=== PATIENT | male | born 1945 | race Caucasian/White ===

== ENCOUNTER 2017-03-26 10:58 | Inpatient (IN) ==
--- NOTE | 2017-03-25 22:20 | Discharge Summary ---
<Nova Cruz - Last Filed: 03/26/17 09:14> Date of Encounter: 03/26/17 - Discharge Diagnosis (1) Rotator cuff tear arthropathy of right shoulder Priority: Primary Status: Acute (2) DMII (diabetes mellitus, type 2) Priority: Secondary Status: Chronic Qualifiers: Diabetes mellitus complication status: with unspecified complications Diabetes mellitus skilled nursing insulin use: unspecified terminal computer operator insulin use status Qualified Code(s): E11.8 - Type 2 diabetes mellitus with unspecified complications (3) HTN (hypertension) Priority: Secondary Status: Chronic Qualifiers: Hypertension type: essential hypertension Qualified Code(s): I10 - Essential (primary) hypertension (4) Smoker Priority: Secondary Status: Chronic (5) HLD (hyperlipidemia) Priority: Secondary Status: Chronic Qualifiers: Hyperlipidemia type: unspecified Qualified Code(s): E78.5 - Hyperlipidemia , unspecified - Discharge Medications Home Medications: Atorvastatin [Lipitor] 40 mg PO HS 02/16/17 [History] Lisinopril [Zestril] 5 mg PO DAILY 02/16/17 [History] Omeprazole [PriLOSEC] 40 mg PO DAILY 02/16/17 [History] OxyCODONE Immed Rel [Roxicodone 5 MG] 5 - 10 mg PO Q6HR PRN #40 tablet 03/26/17 [Rx] Allergies/Adverse Reactions: Allergies No Known Allergies Allergy (Verified 03/26/17 13:01) Primary care physician: Sudhakar Cortez DO - Patient Status Disposition: Home, Self-Care Condition: Good - Discharge Instructions Follow Up With: Sudhakar Cortez DO [Primary Care Provider] - - Hospital Course Hospital course: Mr. Shah is a 71 year old male - Time Spent with Patient Total time spent providing and/or coordinating discharge services: <Arturo Correa - Last Filed: 03/27/17 06:26> Date of Encounter: 03/27/17 Time of Encounter: 06:26 - Discharge Diagnosis (1) Rotator cuff tear arthropathy of right shoulder Priority: Primary Status: Acute (2) DMII (diabetes mellitus, type 2) Priority: Secondary Status: Chronic Qualifiers: Diabetes mellitus complication status: with unspecified complications Diabetes mellitus terminal computer operator insulin use: unspecified skilled nursing insulin use status Qualified Code(s): E11.8 - Type 2 diabetes mellitus with unspecified complications (3) HTN (hypertension) Priority: Secondary Status: Chronic Qualifiers: Hypertension type: essential hypertension Qualified Code(s): I10 - Essential (primary) hypertension (4) Smoker Priority: Secondary Status: Chronic (5) HLD (hyperlipidemia) Priority: Secondary Status: Chronic Qualifiers: Hyperlipidemia type: unspecified Qualified Code(s): E78.5 - Hyperlipidemia , unspecified Primary care physician: Sudhakar Cortez DO - Patient Status Functional capacity at discharge: independent ambulation Overall status at discharge: patient is progressing back to baseline - Hospital Course Hospital course: Mr. Shah is a 71 year old male The patient had an uneventful postoperative course. They received antibiotics and physical therapy and were discharged in stable condition. There will follow -up in the office in 2 weeks. - Time Spent with Patient Total time spent providing and/or coordinating discharge services:
[2017-03-26] MEDS ORDERED: Lidocaine -MPF 1% 2 ML VIAL ID ONE (11:53)
[2017-03-26] MEDS ORDERED: Albuterol 2.5 MG/3 ML NEBULIZER IH ONE (11:53)
[2017-03-26] MEDS ORDERED: CeFAZolin Pre 2,000 MG/100 ML 2,000 MG/100 ML BAG IVPB ONE (11:53)
[2017-03-26] MEDS ORDERED: Ringers Solution, Lactated 1,000 ML IVC SCH ×2 (12:00→17:05)
--- NOTE | 2017-03-26 12:11 | Anesthesia Evaluation PreOp ---
Date of Encounter: 03/26/17 Time of Encounter: 12:09 - Past History Planned Operation: r tsr Cardiac History: HTN, Hyperlipidemia Pulmonary History: Smoker, Pack/yr (30), Asthma GREETER History: Denies Any Significant HX Other Medical History: Diabetes Type II, GERD Anesthesia History: No Prior Anesthetic Complications, Past Anesthesia (partial colectomy, umb hernia) Alcohol Use: occasionally Drug use: none Medications and Allergies Atorvastatin [Lipitor] 40 mg PO HS 02/16/17 [History] Lisinopril [Zestril] 5 mg PO DAILY 02/16/17 [History] Omeprazole [PriLOSEC] 40 mg PO DAILY 02/16/17 [History] OxyCODONE Immed Rel [Roxicodone 5 MG] 5 - 10 mg PO Q6HR PRN #40 tablet 03/26/17 [Rx] Allergies No Known Allergies Allergy (Verified 03/16/17 13:41) - Meds/Allergy Pre-op Review Medications Reviewed: Yes Allergies Reviewed: Yes Beta Blockers on Current Med List: No Anesthesia Results - Labs Laboratory Tests 03/16/17 03/16/17 03/16/17 14:02 14:02 14:02 Hgb 15.7 Hct 48.9 Plt Count 165 PT 12.8 H INR 1.2 APTT 34.4 Sodium 141 Potassium 4.4 Creatinine 1.03 - Imaging EKG: report reviewed (sr) Anesthesia Exam O2 Sat Height 1.7 m Height 1.7 m Weight 92.079 kg Weight 92.079 kg O2 Sat by Pulse Oximetry 96 Vital Signs Temp Pulse Resp BP Pulse Ox 97.7 F 74 18 174/83 96 03/26/17 11:56 03/26/17 11:56 03/26/17 11:56 03/26/17 11:56 03/26/17 11:56 Height: 1.7 Weight: 92 NPO (# of Hours): >8 - HEENT Pupil (Motor): Pupils equal, EOMI Mallampati: II Teeth: Edentulous Denture Type: Upper: Complete, Lower: Complete Oral Opening: Greater than 3 - GREETER LOC: Oriented GREETER Motor: Normal RUE, Normal LUE, Normal RLE, Normal LLE, Normal Face GREETER Sensory: Normal: RUE, LUE, RLE, LLE, Face - Cardiac Rhythm: Regular Murmur: None - Pulmonary Breath Sounds: bilateral Clear Respiratory Effort: Symmetrical Anesthesia Assess/Plan ASA Score: 2 Modified [place] Scale for Level of Consciousness: Cooperative, oriented, and tranquil Anesthetic Plan: General, Regional Monitoring Plan: Standard Monitors Recovery Plan: PACU
[2017-03-26] MEDS ORDERED: CloNIDine Patch 0.1 MG PATCH (WEEKLY) TD SCH (12:30)
[2017-03-26] MEDS ORDERED: *HR* Propofol 200 MG/20 ML VIAL IVP ONE (13:49)
[2017-03-26] MEDS ORDERED: *HR* FentaNYL (PF) 100 MCG/2 ML VIAL ONE (13:49)
[2017-03-26] MEDS ORDERED: *HR* Midazolam HCl 2 MG/2 ML VIAL ONE (13:49)
[2017-03-26] MEDS ORDERED: Ondansetron 4 MG/2 ML VIAL IVP PRN ×3 (13:52→17:05)
[2017-03-26] MEDS ORDERED: *HR* HYDROmorphone (PF) 1 MG/ML SYRINGE IVP PRN ×3 (13:52→17:05)
[2017-03-26] MEDS ORDERED: Lidocaine -MPF 2% 2 ML VIAL ONE (14:06)
--- NOTE | 2017-03-26 14:18 | History & Physical Report ---
Date of Encounter: 03/26/17 Time of Encounter: 14:18 24 Hour HP Update - Instructions Instructions: If the History and Physical is less than 30 days old and was completed prior to A.M. admission and or procedure and has NOT been updated on calendar day of procedure please complete this update prior to performing procedure. - Update Patient reports changes in Medical Condition: No Changes in examination, assessment, or condition: No Changes in Medication: No Preop tests/diagnostics Reviewed: Yes Surgery Remains Indicated: Yes Consent for Planned Operative Procedure(s) Verified: Yes - Pre-Operative Checklist Preoperative Checklist Indicated: No Prophylactic Antibiotic Ordered: Yes Is VTE Prophylaxis Indicated?: Yes
[2017-03-26] MEDS ORDERED: ROPIVACAINE HCL/PF 0.5% 30 ML VIAL ONE (14:25)
[2017-03-26] MEDS ORDERED: Bupivacaine-MPF 0.25% 10 ML VIAL ONE (14:25)
--- NOTE | 2017-03-26 14:44 | Anesthesia Procedures ---
Date of Encounter: 03/26/17 Time of Encounter: 14:42 Procedures: Anesthesia - Nerve Block Procedure Date: 03/26/17 Time: 14:42 Allergies/Adv Reactions: nka Surgical Procedure: right TSA Checklist: Correct Patient Identifier, Correct procedure, History checked Correct side: Right Blood Thinner: No Monitor Applied: EKG, BP, Pulse Oximetry Supplemental Oxygen via Nasal Cannula (L/min): 2 Sedation: Versed (mg): 2 Sedation: Fentanyl (mcg): 100 Indication: Post Op Analgesia Pre-op Neuro Deficits: No Block Type: Interscalene, Other (CP) Catheter placed: No Sterile Technique: Yes Ultrasound used: Yes Anatomy identified: Yes Visual spread of Local: Yes Neuro Stimulation: No Blood on Needle Aspiration: No Smooth Injection of Local: Yes Pain with Injection of Local: No Prep: Chlorhexadine Needle: 22 x 50 mm Stimuplex Local: Ropivacaine (0.5% 30mL), Other (decadron 10mg IS, 0.25% 10mL bupivacaine CP) Volume (cc): 40 Number of Attempts: 1 Complications: None/effective block Vitals: Vital Signs/O2 Sat/Glucose, Most Recent Temp Pulse Resp BP Pulse Ox 97.7 F 74 18 174/83 96 03/26/17 12:06 03/26/17 12:06 03/26/17 12:06 03/26/17 12:06 03/26/17 12:06
[2017-03-26] MEDS ORDERED: Ondansetron 4 MG/2 ML VIAL ONE (15:18)
[2017-03-26] MEDS ORDERED: Dexamethasone 4 MG/ML VIAL ONE (15:18)
--- NOTE | 2017-03-26 15:36 | Orthopedic Operative Note ---
Date of procedure: 03/26/17 Pre-op diagnosis: Right shoulder cuff tear arthropathy Post-op diagnosis: same Procedure: Procedure: Right Total Shoulder Replacment Reverse, biceps tenodesis Estimated blood loss: 100 cc Hardware: Metal and polyethylene replacement: Arthrex large glenoid baseplate, 2 4.5 screws. 1 6.5 screw, 42+4 glenosphere, 12 humeral stem, poly insert 3 Exam Under anesthesia: Full motion no instability Procedural Notes: Irreparable tear supraspinatus tendon. Operative procedure: The patient was brought to the operating room and placed on the operating room table. After general anesthesia was administered the operative shoulder was examined. Findings were noted. The patient was placed in the modified beachchair position. All pressure points were padded appropriately. And the head was stabilized in the neutral position. The operative extremity was prepped and draped in the sterile surgical fashion. The patient received IV antibiotics prior to skin incision. A standard deltopectoral approach was made to the operative shoulder. Incision was made to the skin and subcutaneous tissue,hemo stasis was obtained with Bovie cautery. Using careful blunt dissection the cephalic vein was identified and mobilized medially. The deltopectoral interval was developed and the clavipectoral fascia was incised. The subscap was released off the lesser tuberosity and tagged with #2 FiberWire suture subscap last was irreparable. The humerus was dislocated patient noted to have irreparable tear supraspinatus tendon, and the humeral cut was made along the anatomic neck. Anterior and posterior Bankart retractors were placed to expose the glenoid. The glenoid guide was seated and the centering hole was made. It was reamed with the appropriate reamer. The large baseplate was seated and secured with (2) 4.5 screws and one 6.5 screw. The baseplate was irrigated and dried and the 42+4 Glenosphere was seated and secured with the Barnard taper. The Barnard taper was tested and found to be secure the humerus was redislocated and prepared with the diaphyseal reamers, followed by a broaching process up to the appropriate size 12 in the patient's anatomic version. The metaphyseal reamer was then utilized. Trial reduction found the shoulder to be relocatable. Trial components were removed and The appropriate 12 stem was impacted in place in the patient's anatomic version. Trial reduction found the shoulder to be relocatable and stable with the appropriate 3 Trial component was removed and the real component was seated and secured the shoulder was reduced. The shoulder had excellent motion and excellent stability and no evidence of dislocation. The deep tissue was irrigated with pulse irrigation. The deltopectoral interval was closed with a running #1 PDS suture, subcutaneous tissue was irrigated and closed with 0 PDS suture, the skin was closed with Dermabond. The patient was placed in a sterile dressing, abduction brace and extubated. The patient was then transferred to the recovery room in stable condition. Anesthesia: LUCHO Surgeon: Arturo Correa Stretching Press Operator: Nova Cruz Condition: stable Disposition: PACU
--- NOTE | 2017-03-26 16:26 | Anesthesia Evaluation Post Op ---
Date of Encounter: 03/26/17 Time of Encounter: 16:25 - Vital Signs Vital Signs: O2 Sat Height 1.7 m Height 1.7 m Height 1.7 m Weight 92.079 kg Weight 92.079 kg Weight 92.079 kg O2 Sat by Pulse Oximetry 96 O2 Sat by Pulse Oximetry 96 O2 Sat by Pulse Oximetry 95 O2 Sat by Pulse Oximetry 98 O2 Sat by Pulse Oximetry 96 O2 Sat by Pulse Oximetry 96 O2 Sat by Pulse Oximetry 96 Vital Signs Temp Pulse Resp BP Pulse Ox 97.7 F 74 18 174/83 96 03/26/17 11:56 03/26/17 11:56 03/26/17 11:56 03/26/17 11:56 03/26/17 11:56 Vital Signs/O2 Sat/Glucose, Most Current Temp Pulse Resp BP Pulse Ox 03/26/17 16:14 60 16 136/77 96 03/26/17 16:04 62 16 146/85 96 03/26/17 15:54 97.6 F 75 20 121/98 95 03/26/17 14:49 63 16 170/80 98 - Lungs Lungs: Clear Ascult./Percussion - Airway Airway: Non-obstructed - Cardiovascular Regular Rate - Mental Status Mental Status: Alert & Oriented, Answers Appropriately - Pain Pain Scale: 0 - Nausea Vomiting Nausea Vomiting: Not Present - Hydration Hydration: Tolerates oral liquids - Discharge PostOp Status: Discharge Patient to home
[2017-03-26 16:47] LABS: Hematocrit 43.8 % (37.5-50.1); Hemoglobin 14.1 g/dL (12.9-16.9)
[2017-03-26] MEDS ORDERED: Dextrose Gel 15 GM PO PRN ×2 (17:05)
[2017-03-26] MEDS ORDERED: Sennosides 8.6 MG TABLET PO PRN (17:05)
[2017-03-26] MEDS ORDERED: *HR* Dextrose 50 % in Water (Syg) 50 ML SYRINGE IVP PRN (17:05)
[2017-03-26] MEDS ORDERED: MOM Conc 10 ML UD.LIQ PO PRN (17:05)
[2017-03-26] MEDS ORDERED: *HR* OxyCODONE Immed Rel 5 MG TABLET PO PRN ×2 (17:05)
[2017-03-26] MEDS ORDERED: Temazepam 15 MG CAPSULE PO PRN (17:05)
[2017-03-26] MEDS ORDERED: Naloxone 0.4 MG/ML INJ IVP PRN (17:05)
[2017-03-26] MEDS ORDERED: D5% in Water 1,000 ML IVC PRN (17:05)
[2017-03-26] MEDS: ceFAZolin 2,000 MG in D5% in Water 100 ML IVPB SCH (17:53)
[2017-03-26] MEDS: *HR* Enoxaparin 30 MG/0.3 ML SYRINGE SQ SCH (17:55)
[2017-03-26] MEDS: Insulin LISPRO 300 UNITS/3 ML VIAL SQ SCH (17:56)
[2017-03-26] MEDS ORDERED: *HR* Enoxaparin 30 MG/0.3 ML SYRINGE SQ SCH (18:00)
[2017-03-26] MEDS ORDERED: Insulin LISPRO 300 UNITS/3 ML VIAL SQ SCH (21:00)
[2017-03-27] MEDS: ceFAZolin 2,000 MG in D5% in Water 100 ML IVPB SCH (00:17)
[2017-03-27 04:26] LABS: Hematocrit 44.7 % (37.5-50.1)
[2017-03-27] MEDS: *HR* Enoxaparin 30 MG/0.3 ML SYRINGE SQ SCH (05:26)
--- NOTE | 2017-03-27 06:27 | Orthopedics Progress Note ---
Date of Encounter: 03/27/17 Time of Encounter: 06:26 - Assessment and Plan (1) Rotator cuff tear arthropathy of right shoulder Current Visit: Yes Status: Acute (2) DMII (diabetes mellitus, type 2) Current Visit: Yes Status: Chronic Qualifiers: Diabetes mellitus complication status: with unspecified complications Diabetes mellitus intermediate insulin use: unspecified longwall foreman insulin use status Qualified Code(s): E11.8 - Type 2 diabetes mellitus with unspecified complications (3) HTN (hypertension) Current Visit: Yes Status: Chronic Qualifiers: Hypertension type: essential hypertension Qualified Code(s): I10 - Essential (primary) hypertension (4) Smoker Current Visit: Yes Status: Chronic (5) HLD (hyperlipidemia) Current Visit: Yes Status: Chronic Qualifiers: Hyperlipidemia type: unspecified Qualified Code(s): E78.5 - Hyperlipidemia , unspecified Subjective Interval history: Patient was seen this morning doing well without complaints. Afebrile vital signs stable. Operative extremity: Neurovascularly intact Dressing clean dry and intact Calves nontender Assessment and plan: Continue with postoperative care Hematocrit 44 discharged today Objective Vital signs: Vital Signs Temp Pulse Resp BP Pulse Ox 03/27/17 05:04 93 03/27/17 04:34 98.5 F 76 15 133/78 85 03/27/17 00:36 98.7 F 78 14 120/78 99 03/26/17 20:24 94 03/26/17 20:10 98.1 F 89 15 134/95 94 03/26/17 19:10 98.2 F 81 16 03/26/17 18:10 98.3 F 69 16 138/81 93 03/26/17 17:37 98.0 F 65 16 133/79 92 03/26/17 17:17 95 03/26/17 17:10 97.8 F 62 14 127/73 95 03/26/17 16:24 97.6 F 67 16 140/82 96 03/26/17 16:14 60 16 136/77 96 03/26/17 16:04 62 16 146/85 96 03/26/17 15:54 97.6 F 75 20 121/98 95 03/26/17 14:49 63 16 170/80 98 03/26/17 12:06 97.7 F 74 18 174/83 96 03/26/17 11:56 97.7 F 74 18 174/83 96 Intake and Output 03/26/17 03/26/17 03/27/17 15:59 23:59 07:59 Intake Total 200 / 200 1225 / 1225 Output Total 100 / 100 950 / 950 Balance -100 / -100 200 / 200 275 / 275 Intake: IV Fluids 100 / 100 1100 / 1100 Lactated Ringers 1,000 ML 1000 / 1000 @ 75 mls/hr IVC .[id number] YAMEL Rx#:[id number] Ancef 2,000 MG In 100 / 100 100 / 100 Dextrose 5% 100 ML @ 200 mls/hr IVPB Q8H YAMEL Rx#: [id number] Oral 100 / 100 125 / 125 Output: Urine 0 / 0 950 / 950 Estimated Blood Loss 100 / 100 Other: Weight 92.079 kg 76.2 kg Blood Glucose* 165 Patient Weight 03/27/17 23:59 Weight 76.2 kg - Labs CBC & BMP: 03/27/17 03:43 Labs: Abnormal lab results POC Glucose 165 (58-89) H 03/26/17 20:36 - VTE Documentation of Mechanical Device: Venous foot pump, device Consult Discharge Plan - Plan Referrals: Sudhakar Cortez DO [Primary Care Provider] -
[2017-03-27 06:31] VITALS: BP 124/71
[2017-03-27] MEDS: Insulin LISPRO 300 UNITS/3 ML VIAL SQ SCH (07:49)
== END 2017-03-27 10:50 | disposition home or self-care (01) | DRG 483 ==
LOC: SAMDAY 10:58 → 3NENU 16:44
PROVIDERS: ADMIT Orthopaedic Surgery; ATTEND Orthopaedic Surgery

== ENCOUNTER 2018-06-10 11:21 | Inpatient (IN) ==
--- NOTE | 2018-06-09 21:48 | Discharge Summary ---
<Arturo Correa - Last Filed: 06/11/18 08:19> Orders not resulted at time of discharge: Pending orders 06/10/18 00:01 XR shoulder complete LT [XR] Routine 06/10/18 08:07 US anesthesia pain block [US] Routine 06/10/18 11:41 CBC [Complete Blood Count] [HEME] Stat Date of Encounter: 06/11/18 Time of Encounter: 08:19 - Discharge Diagnosis (1) Obesity (BMI 30.0-34.9) Priority: Secondary Status: Chronic (2) Hx of basal cell carcinoma Priority: Secondary Status: Chronic (3) Status post reverse total replacement of right shoulder Priority: Primary Status: Acute (4) DMII (diabetes mellitus, type 2) Priority: Secondary Status: Chronic Qualifiers: Diabetes mellitus termite exterminator insulin use: unspecified assisted insulin use status Diabetes mellitus complication status: with unspecified complications Qualified Code(s): E11.8 - Type 2 diabetes mellitus with unspecified complications (5) HLD (hyperlipidemia) Priority: Secondary Status: Chronic Qualifiers: Hyperlipidemia type: unspecified Qualified Code(s): E78.5 - Hyperlipidemia , unspecified (6) HTN (hypertension) Priority: Secondary Status: Chronic Qualifiers: Hypertension type: essential hypertension Qualified Code(s): I10 - Essential (primary) hypertension (7) Rotator cuff tear arthropathy of right shoulder Priority: Primary Status: Chronic (8) Smoker Priority: Secondary Status: Chronic - Hospital Course Hospital course: Mr. Shah is a 72 year old male Status post left total shoulder replacement The patient had an uneventful postoperative course. They received antibiotics and physical therapy and were discharged in stable condition. There will follow -up in the office in 2 weeks. - Time Spent with Patient Total time spent providing and/or coordinating discharge services: - Discharge Medications Home Medications: OxyCODONE Immed Rel [Roxicodone 5 MG] 5 mg PO Q6HR PRN 7 Days #28 tablet [Rx] Albuterol Sulfate [Proair Hfa] 2 puff IH Q4H PRN 06/10/18 [History] Atorvastatin [Lipitor] 40 mg PO DAILY 06/10/18 [History] Cyanocobalamin (Vitamin B-12) [Vitamin B12] 1,000 mcg PO DAILY 06/10/18 [History ] Lisinopril [Zestril] 5 mg PO BID 06/10/18 [History] Omeprazole [PriLOSEC] 40 mg PO DAILY 06/10/18 [History] Sildenafil Citrate [Viagra] 100 mg PO DAILY PRN 06/10/18 [History] Allergies/Adverse Reactions: 3 Allergy/AdvReac Type Severity Reaction Status Date / Time No Known Allergies Allergy Verified 04/05/17 20:18 Primary care physician: Sudhakar Cortez DO - Patient Status Disposition: Home, Self-Care Condition: Good Functional capacity at discharge: independent ambulation Overall status at discharge: patient is progressing back to baseline - Discharge Instructions Follow Up With: Arturo Correa MD [Partnered Physician] - 07/10/18 4:40 pm Nova Cruz PAC [Physician Commodity Manager] - 06/20/18 10:15 am Sudhakar Cortez DO [Primary Care Provider] - 08/23/18 2:25 pm Additional Instructions: Discharge Instructions: Total Shoulder Please call [facility] ([phone]), your Primary Care Physician, or report to the Emergency Room if you have any of the following symptoms: Nausea, vomiting, fever greater that 101.5, swelling, chest pain, shortness of breath, increased pain/redness/drainage/odor for your incision site, numbness/ tingling, or any other concerning symptoms. ACTIVITY: Always keep your arm in the sling. Do not raise your arm away from your body. Do not use your arm to help with getting in or out of bed. No weight bearing permitted. Only perform those exercises given to you by your therapist. Incentive Spirometer 10 times an hour. MEDICATIONS: Upon discharge resume your home medications. Take all the medications as prescribed. Take a stool softener if taking narcotic pain medications. Stool softeners are only effective if you drink enough fluids. Drink 6-8 glass of water or fluids a day, unless this is not allowed for another health problem. Despite using stool softeners, if you haven't had a bowel movement in 3 days, please switch to a gentle laxative. Gentle laxatives are sold over the counter. You should have a bowel movement within 24 hours, if not call the office. You will be discharged from the hospital with a prescription for pain medication. You are encouraged to decrease the use of narcotic pain medication as tolerated. Should you require a refill, please call the office. [facility] prescribes narcotic pain medication for only 4-6 weeks after surgery. If you require pain medication beyond this time period, you may be referred to your Primary Care Physician or to the Pain Clinic for further evaluation. Plan ahead for refills on pain medication as many narcotics either need to be picked up at the office or mailed. It is best to call 48-72 hours in advance of needing a prescription refill so you don't run out of medication. To help control the post-operative pain, you may take NSAIDs (Aleve,Advil, Motrin, Ibuprofen, Naprosyn) or Tylenol as prescribed on the bottle in addition to the pain medication. WOUND CARE: Leave the dressing on for 7-10 days. You may change the dressing if it becomes saturated greater than 50%. Do not get the dressing wet at anytime. Wash your hands with antibacterial soap, rinse and dry prior to any wound care. If you have mike the visiting nurse or rehab facility can remove the stapes 10-14 days after surgery and place steri-strips across the wound. Leave the steri-strips in place until they fall off on their own. You may let water from the shower run on top of the steri-strips. If you do not have a visiting nurse or rehab facility, you will need to return to the office at 10-14 days for the mike to be removed. If you have itching or redness around the dressing call the office. FOLLOW-UP: Please follow up with your surgeon in the orthopedic clinic, as scheduled <Nova Cruz - Last Filed: 06/13/18 12:58> Date of Encounter: 06/11/18 Time of Encounter: 12:56 - Discharge Diagnosis (1) Status post reverse total replacement of right shoulder Priority: Primary Status: Acute Comments: Opsite dressing, leave intact until first post-operative visit. Zipline in place , plan to remove at post-operative day #14-16. If dressing becomes >50% saturated, contact office, remove dressing and place appropriate dressing in its place.~ Do not allow for dressing to get wet. Shoulder Precautions x 6 weeks.~ Apply cold therapy wrap 3-6x/day for 20 minutes at a time.~ Encourage ambulation throughout the day. Use Incentive spirometer 10x/hour.~ Elevate affected extremity above heart as tolerated.~ NWB to affected upper extremity x 6 weeks.~ Will remove brace at first post-operative appointment. OK to remove during PT/ OT and Home exercises.~ (2) Rotator cuff tear arthropathy of right shoulder Priority: Secondary Status: Chronic (3) Hx of basal cell carcinoma Priority: Secondary Status: Chronic (4) DMII (diabetes mellitus, type 2) Priority: Secondary Status: Chronic Qualifiers: Diabetes mellitus termite exterminator insulin use: unspecified termite exterminator insulin use status Diabetes mellitus complication status: with unspecified complications Qualified Code(s): E11.8 - Type 2 diabetes mellitus with unspecified complications (5) HLD (hyperlipidemia) Priority: Secondary Status: Chronic Qualifiers: Hyperlipidemia type: unspecified Qualified Code(s): E78.5 - Hyperlipidemia , unspecified (6) HTN (hypertension) Status: Chronic Qualifiers: Hypertension type: essential hypertension Qualified Code(s): I10 - Essential (primary) hypertension (7) Smoker Priority: Secondary Status: Chronic - Hospital Course Hospital course: Mr. Shah is a 72 year old male Afebrile, vital signs stable. Labs reviewed. H/H - stable, asymptomatic Pain control: adequate Participating in PT.~ All questions and concerns addressed. Educated on use of incentive spirometer. Encouraged ambulation and proper hydration.~ Patient educated on post-operative restrictions and post-operative care.~ Assessment and plan: Continue with postoperative care Discharge plan: Home, discharge today. - Time Spent with Patient Total time spent providing and/or coordinating discharge services: Primary care physician: Sudhakar Cortez DO - Patient Status Functional capacity at discharge: independent ambulation Overall status at discharge: patient is back to baseline
--- NOTE | 2018-06-10 07:51 | Anesthesia Evaluation PreOp ---
Date of Encounter: 06/10/18 Time of Encounter: 12:24 - Past History Planned Operation: LEFT TSA Cardiac History: HTN, Hyperlipidemia, Other (DVT RIGHT ARM AFTER TSA, WAS ON XARELTO FOR 3 MONTHS) Pulmonary History: Smoker, COPD RISK ENGINEER History: Denies Any Significant HX Other Medical History: Diabetes Type II (DIET CONTROLLED), GERD, Other (OBESITY , BMI) Anesthesia History: No Prior Anesthetic Complications, Past Anesthesia ( COLECTOMY, Umbilical hernia repair, right Total Shoulder Replacment) Alcohol Use: occasionally Drug use: none Medications and Allergies OxyCODONE Immed Rel [Roxicodone 5 MG] 5 mg PO Q6HR PRN 7 Days #28 tablet [Rx] Atorvastatin [Lipitor] 40 mg PO DAILY 06/10/18 [History] Cyanocobalamin (Vitamin B-12) [Vitamin B12] 1,000 mcg PO 06/10/18 [History] Lisinopril [Zestril] 5 mg PO BID 06/10/18 [History] Omeprazole [PriLOSEC] 40 mg PO DAILY 06/10/18 [History] Proair Hfa 1 puff .ROUTE PRN PRN 06/10/18 [History] Sildenafil Citrate [Viagra] 100 mg PO PRN PRN 06/10/18 [History] 3 Allergy/AdvReac Type Severity Reaction Status Date / Time No Known Allergies Allergy Verified 04/05/17 20:18 - Meds/Allergy Pre-op Review Medications Reviewed: Yes Allergies Reviewed: Yes Beta Blockers on Current Med List: No Anesthesia Results - Labs Laboratory Last Values WBC 13.4 K/mcL (4.3-11.1) H 06/06/18 15:16 RBC 4.55 M/mcL (4.19-5.50) 06/06/18 15:16 Hgb 15.3 g/dL (12.9-16.9) 06/06/18 15:16 Hct 43.8 % (37.5-50.1) 06/06/18 15:16 MCV 96.3 fL (83.0-100.0) 06/06/18 15:16 MCH 33.6 pg (28.0-33.3) H 06/06/18 15:16 MCHC 34.9 g/dL (31.6-35.5) 06/06/18 15:16 RDW 14.6 % (11.5-14.5) H 06/06/18 15:16 Plt Count 135 K/mcL (140-400) L 06/06/18 15:16 MPV 13.1 fL (9.4-12.4) H 06/06/18 15:16 Immature Gran % 0.7 % (0-4) 06/06/18 15:16 Seg Neutrophils % 56.5 % 06/06/18 15:16 Lymphocytes % 29.5 % 06/06/18 15:16 Monocytes % 9.5 % 06/06/18 15:16 Eosinophils % 3.1 % 06/06/18 15:16 Basophils % 0.7 % 06/06/18 15:16 Neutrophils # 7.6 K/mcL (1.6-8.9) 06/06/18 15:16 Lymphocytes # 4.0 K/mcL (0.6-4.6) 06/06/18 15:16 Monocytes # 1.3 K/mcL (0.0-1.3) 06/06/18 15:16 Eosinophils # 0.4 K/mcL (0.0-0.6) 06/06/18 15:16 Basophils # 0.1 K/mcL (0.0-0.2) 06/06/18 15:16 Sodium 140 mEq/L (136-145) 06/06/18 15:16 Potassium 4.0 mEq/L (3.5-5.1) 06/06/18 15:16 Chloride 109 mEq/L (98-107) H 06/06/18 15:16 Carbon Dioxide 27 mEq/L (23-29) 06/06/18 15:16 BUN 10 mg/dL (8-23) 06/06/18 15:16 Creatinine 1.07 mg/dL (0.70-1.30) 06/06/18 15:16 Est GFR ( Amer) > 60 (> 60) 06/06/18 15:16 Est GFR (Non-Af Amer) > 60 (> 60) 06/06/18 15:16 BUN/Creatinine Ratio 9 (6-26) 06/06/18 15:16 Glucose 112 mg/dL (70-105) H 06/06/18 15:16 Calculated Osmolality 290 (280-300) 06/06/18 15:16 Calcium 8.9 mg/dL (8.6-10.3) 06/06/18 15:16 Laboratory Tests 05/21/18 09:11 Hemoglobin A1c 6.5 H - Imaging EKG: report reviewed (SINUS RHYTHM WITH OCCASIONAL VENTRICULAR PREMATURE COMPLEXES) Anesthesia Exam O2 Sat Height 1.7 m Height 1.7 m Weight 97.069 kg Weight 97.069 kg BMI 34 Vital Signs Temp Pulse Resp BP Pulse Ox 97.7 F 71 18 179/83 96 06/10/18 11:56 06/10/18 11:56 06/10/18 11:56 06/10/18 11:56 06/10/18 11:56 NPO (# of Hours): 8 - HEENT Mallampati: II Teeth: Edentulous Denture Type: Upper: Complete, Lower: Complete Oral Opening: Greater than 3 - Cardiac Rhythm: Regular - Pulmonary Breath Sounds: bilateral Clear Respiratory Effort: Symmetrical Anesthesia Assess/Plan ASA Score: 3 Modified Margaret Scale for Level of Consciousness: Cooperative, oriented, and tranquil Anesthetic Plan: General, Regional (FOR POST OPERATIVE PAIN CONTROL) Monitoring Plan: Standard Monitors Recovery Plan: PACU Anes Supervising Prov Stmt: ELEVATED WBC, PATIENT DENIES UTI OR URI SYMPTOMS. NO SKIN INFECTIONS, BOILS, ETC. NO RECENT STEROID USE. WBC HAS BEEN ELEVATED ON ALL CBC PANELS PERFORMED SINCE 01/2017 AT THIS FACILITY. PATIENT AND FAMILY ADVISED TO FOLLOW UP WITH PCP. PROBABLY NORMAL FOR PATIENT, BUT NEED TO RULE OUT MYELOPROLIFERATIVE DISORDERS AND LEUKEMIA. Patient informed and consented. Risks, benefits, and alternatives discussed. Patient wishes to proceed.
[2018-06-10] MEDS ORDERED: CeFAZolin Syr 2,000MG/20 ML 2,000 MG/20 ML SYRINGE IVPB ONE (12:01)
[2018-06-10] MEDS ORDERED: Albuterol 2.5 MG/3 ML NEBULIZER IH ONE (12:01)
--- NOTE | 2018-06-10 12:04 | History & Physical Report ---
Date of Encounter: 06/10/18 Time of Encounter: 12:03 24 Hour HP Update - Instructions Instructions: If the History and Physical is less than 30 days old and was completed prior to A.M. admission and or procedure and has NOT been updated on calendar day of procedure please complete this update prior to performing procedure. - Update Patient reports changes in Medical Condition: No Changes in examination, assessment, or condition: No Changes in Medication: No Preop tests/diagnostics Reviewed: Yes Surgery Remains Indicated: Yes Consent for Planned Operative Procedure(s) Verified: Yes - Pre-Operative Checklist Preoperative Checklist Indicated: No Prophylactic Antibiotic Ordered: Yes Is VTE Prophylaxis Indicated?: Yes
[2018-06-10] MEDS ORDERED: Ringers Solution, Lactated 1,000 ML IVC SCH ×2 (12:15→16:14)
[2018-06-10] MEDS ORDERED: *HR* FentaNYL (PF) 100 MCG/2 ML VIAL ONE ×2 (12:30→14:29)
[2018-06-10] MEDS ORDERED: *HR* Midazolam HCl 2 MG/2 ML VIAL ONE (12:30)
[2018-06-10] MEDS ORDERED: *HR* Propofol 200 MG/20 ML VIAL IVP ONE (12:31)
[2018-06-10] MEDS ORDERED: ROPIVACAINE HCL/PF 0.5% 30 ML VIAL ONE (13:17)
[2018-06-10] MEDS ORDERED: Bupivacaine/Clonidine Syringe 1 EACH SYRINGE ONE (13:17)
[2018-06-10] MEDS ORDERED: *HR* Labetalol 20 MG/4 ML SYRINGE IVP PRN (13:21)
[2018-06-10] MEDS ORDERED: *HR* OxyCODONE Immed Rel 5 MG TABLET PO PRN ×2 (13:21→16:14)
[2018-06-10] MEDS ORDERED: *HR* HYDROmorphone (PF) 1 MG/ML SYRINGE IVP PRN (13:21)
[2018-06-10] MEDS ORDERED: *HR* HYDROmorphone 2 MG TABLET PO PRN (13:21)
[2018-06-10] MEDS ORDERED: MORPHINE SUL Oral CONC 10 MG/0.5 ML ORAL.SYG SL PRN (13:21)
[2018-06-10] MEDS ORDERED: *HR* Promethazine 25 MG/ML VIAL IVP PRN (13:21)
[2018-06-10] MEDS ORDERED: *HR* Succinylcholine 200 MG/10 ML VIAL IVP ONE (13:51)
[2018-06-10] MEDS ORDERED: Lidocaine -MPF 2% 2 ML VIAL ONE (13:51)
[2018-06-10] MEDS ORDERED: *HR* Rocuronium Bromide 50 MG/5 ML VIAL ONE (13:51)
[2018-06-10] MEDS ORDERED: Acetaminophen IV 1,000 MG/100 ML INFUS..BTL ONE (13:56)
[2018-06-10] MEDS ORDERED: Dexamethasone 4 MG/ML VIAL ONE (14:02)
[2018-06-10] MEDS ORDERED: Ketorolac 30 MG/ML VIAL ONE (14:02)
[2018-06-10] MEDS ORDERED: Ondansetron 4 MG/2 ML VIAL ONE (14:02)
--- NOTE | 2018-06-10 14:16 | Anesthesia Procedures ---
Date of Encounter: 06/10/18 Time of Encounter: 14:13 Procedures: Anesthesia - Nerve Block Procedure Date: 06/10/18 Time: 13:45 Allergies/Adv Reactions: No Known Allergies Allergy (Verified 04/05/17 20:18) Pre-op Diagnosis: left shoulder rotator cuff arthropathy Surgical Procedure: left total shoulder reverse ball Checklist: Correct Patient Identifier, Correct procedure, History checked Correct side: Left Blood Thinner: No Monitor Applied: EKG, BP, Pulse Oximetry Supplemental Oxygen via Nasal Cannula (L/min): 2 Sedation: Versed (mg): 2 Sedation: Fentanyl (mcg): 100 Pre-op Neuro Deficits: No Block Type: Supraclavicular Catheter placed: No Sterile Technique: Yes Ultrasound used: Yes Anatomy identified: Yes Visual spread of Local: Yes Neuro Stimulation: No Blood on Needle Aspiration: No Smooth Injection of Local: Yes Pain with Injection of Local: No Prep: Chlorhexadine Needle: 22 x 50 mm Stimuplex Local: 0.25% Bupivicaine w/Clonidine 20 mcg/cc (ICB, SCP 5ml each), Ropivacaine (0.5% ropivicaine 30ml-sUPRAclav) Volume (cc): 40 Number of Attempts: 1 Complications: None/effective block
--- NOTE | 2018-06-10 15:00 | Orthopedic Operative Note ---
Date of procedure: 06/10/18 Pre-op diagnosis: Left shoulder cuff tear arthropathy Post-op diagnosis: same Procedure: Procedure: Total Shoulder Replacment Reverse, left Estimated blood loss: 75 cc Hardware: Metal and polyethylene replacement: Arthrex 28+2, 30 mm screw glenoid baseplate, 2 4.5 screws. 2 5.5 screw, 42+4 glenosphere, 13 humeral stem , poly insert Polly6 Exam Under anesthesia: Full motion no instability Procedural Notes: Irreparable tear supraspinatus tendon Operative procedure: The patient was brought to the operating room and placed on the operating room table. After general anesthesia was administered the operative shoulder was examined. Findings were noted. The patient was placed in the modified beachchair position. All pressure points were padded appropriately. And the head was stabilized in the neutral position. The operative extremity was prepped and draped in the sterile surgical fashion. The patient received IV antibiotics prior to skin incision. A standard deltopectoral approach was made to the operative shoulder. Incision was made to the skin and subcutaneous tissue,hemo stasis was obtained with Bovie cautery. Using careful blunt dissection the cephalic vein was identified and mobilized medially. The deltopectoral interval was developed and the clavipectoral fascia was incised. The subscap was released off the lesser tuberosity and tagged with #2 FiberWire suture Was irreparable. The humerus was dislocated patient noted to have irreparable tear supraspinatus tendon, and the humeral cut was made along the anatomic neck. Anterior and posterior Bankart retractors were placed to expose the glenoid. The glenoid guide was seated and the centering hole was made. It was reamed with the appropriate reamer. 20 mm baseplate +2 with a 30 mm screw was seated and secured with (2) 4.5 screws and 2 5.5 screw. The baseplate was irrigated and dried and the 42+4 Glenosphere was seated and secured with the Barnard taper. The Barnard taper was tested and found to be secure the humerus was redislocated and prepared with the diaphyseal reamers, followed by a broaching process up to the appropriate size 13 in the patient's anatomic version. The metaphyseal reamer was then utilized. Trial reduction found the shoulder to be relocatable. Trial components were removed and the 13 stem was impacted in place in the patient's anatomic version. Trial reduction found the shoulder to be relocatable and stable with the appropriate 6 Kell. Trial component was removed and the real implant was seated and secured the shoulder was reduced. The shoulder had excellent motion and excellent stability and no evidence of dislocation. The deep tissue was irrigated with pulse irrigation. The PA close the shoulder. The deltopectoral interval was closed with a running #1 PDS suture, subcutaneous tissue was irrigated and closed with 0 PDS suture, the skin was closed with Dermabond. The patient was placed in a sterile dressing, abduction brace and extubated. The patient was then transferred to the recovery room in stable condition. Anesthesia: GETA Surgeon: Arturo Correa Was there an assistant toddler teacher present: No Estimated blood loss (cc): 75 Condition: stable Disposition: PACU
--- NOTE | 2018-06-10 15:50 | Anesthesia Evaluation Post Op ---
Date of Encounter: 06/10/18 Time of Encounter: 15:50 - Vital Signs Vital Signs: Vital Signs/O2 Sat/Glucose, Most Current Temp Pulse Resp BP Pulse Ox 06/10/18 15:39 62 16 143/84 97 06/10/18 15:29 71 16 140/85 95 06/10/18 15:19 97.4 F L 59 16 165/78 97 06/10/18 13:59 62 15 135/82 94 06/10/18 13:43 63 15 136/76 91 06/10/18 13:39 66 15 140/74 91 06/10/18 13:28 86 16 155/82 92 06/10/18 13:15 70 15 164/95 94 06/10/18 13:08 68 15 167/88 94 06/10/18 12:34 18 179/83 96 06/10/18 11:56 97.7 F 71 18 179/83 96 - Lungs Lungs: Clear Ascult./Percussion - Airway Airway: Non-obstructed - Cardiovascular Regular Rate, Baseline Rhythm - Mental Status Mental Status: Alert & Oriented, Answers Appropriately - Pain Pain Scale: 2 Pain Scale used: Numeric (1 - 10) - Nausea Vomiting Nausea Vomiting: Not Present - Hydration Hydration: Ice chips, Has not voided - Discharge PostOp Status: Transfer Patient to floor Anes Supervising Prov Stmt: PT seen/evaluated, VSS and has met criteria for discharge to home. - MD Judy
[2018-06-10] MEDS ORDERED: *HR* Dextrose 50 % in Water (Syg) 50 ML SYRINGE IVP PRN (16:14)
[2018-06-10] MEDS ORDERED: Dextrose Gel 15 GM/37.5 ML TUBE PO PRN ×2 (16:14)
[2018-06-10] MEDS ORDERED: Temazepam 15 MG CAPSULE PO PRN (16:14)
[2018-06-10] MEDS ORDERED: Sennosides 8.6 MG TABLET PO PRN (16:14)
[2018-06-10] MEDS ORDERED: NON-FORMULARY MEDICATION 1 EACH EACH (Sildenafil Citrate [Viagra] 100 MG) PO PRN (16:14)
[2018-06-10] MEDS ORDERED: Ondansetron 4 MG/2 ML VIAL IVP PRN (16:14)
[2018-06-10] MEDS ORDERED: traMADol 50 MG TABLET PO PRN (16:14)
[2018-06-10] MEDS ORDERED: Naloxone 0.4 MG/ML INJ IVP PRN (16:14)
[2018-06-10] MEDS ORDERED: D5% in Water 1,000 ML IVC PRN (16:14)
[2018-06-10] MEDS ORDERED: *HR* OxyCODONE/APAP 5/325 TABLET PO PRN (16:14)
[2018-06-10] MEDS ORDERED: MOM Conc 10 ML UD.LIQ PO PRN (16:14)
[2018-06-10 16:39] LABS: Basophils # 0.1 K/mcL (0.0-0.2); Basophils % 0.4 %; Eosinophils # 0.2 K/mcL (0.0-0.6); Eosinophils % 1.4 %; Hematocrit 46.8 % (37.5-50.1); Hemoglobin 15.4 g/dL (12.9-16.9); Immature Granulocytes % 1.1 % (0-4); Lymphocytes # 1.7 K/mcL (0.6-4.6); Lymphocytes % 10.6 %; Mean Corpuscular HGB Conc 32.9 g/dL (31.6-35.5); Mean Corpuscular Hemoglobin 31.1 pg (28.0-33.3); Mean Corpuscular Volume 94.5 fL (83.0-100.0); Mean Platelet Volume 12.6 fL (9.4-12.4); Monocytes # 0.5 K/mcL (0.0-1.3); Neutrophils # 13.5 K/mcL (1.6-8.9); Platelet Count 131 K/mcL (140-400); Red Blood Count 4.95 M/mcL (4.19-5.50); Red Cell Distribution Width 13.7 % (11.5-14.5); Segmented Neutrophils % 83.5 %
[2018-06-10] MEDS ORDERED: Ethanol\\Acetic Acid\\Na Ace\\Ben 1,000 ML IRRIG.SOLN IR ONE (16:52)
[2018-06-10] MEDS: Insulin LISPRO 300 UNITS/3 ML VIAL SQ SCH (17:57)
[2018-06-10] MEDS ORDERED: *HR* Enoxaparin 30 MG/0.3 ML SYRINGE SQ SCH (18:00)
[2018-06-10] MEDS: *HR* Enoxaparin 30 MG/0.3 ML SYRINGE SQ SCH (18:03)
[2018-06-10] MEDS ORDERED: Insulin LISPRO 300 UNITS/3 ML VIAL SQ SCH (21:00)
[2018-06-11 02:25] LABS: Hemoglobin 12.9 g/dL (12.9-16.9)
[2018-06-11] MEDS: *HR* Enoxaparin 30 MG/0.3 ML SYRINGE SQ SCH (05:15)
[2018-06-11 06:30] VITALS: BP 138/65
[2018-06-11] MEDS: Insulin LISPRO 300 UNITS/3 ML VIAL SQ SCH (07:52)
--- NOTE | 2018-06-11 08:21 | Orthopedics Progress Note ---
Date of Encounter: 06/11/18 Time of Encounter: 08:20 - Assessment and Plan (1) Obesity (BMI 30.0-34.9) Current Visit: Yes Status: Chronic (2) Hx of basal cell carcinoma Current Visit: No Status: Chronic (3) Status post reverse total replacement of right shoulder Current Visit: No Status: Acute (4) DMII (diabetes mellitus, type 2) Current Visit: No Status: Chronic Qualifiers: Diabetes mellitus intermediate frame tender insulin use: unspecified skilled nursing insulin use status Diabetes mellitus complication status: with unspecified complications Qualified Code(s): E11.8 - Type 2 diabetes mellitus with unspecified complications (5) HLD (hyperlipidemia) Current Visit: No Status: Chronic Qualifiers: Hyperlipidemia type: unspecified Qualified Code(s): E78.5 - Hyperlipidemia , unspecified (6) HTN (hypertension) Current Visit: No Status: Chronic Qualifiers: Hypertension type: essential hypertension Qualified Code(s): I10 - Essential (primary) hypertension (7) Rotator cuff tear arthropathy of right shoulder Current Visit: No Status: Chronic (8) Smoker Current Visit: No Status: Chronic Subjective Interval history: Patient was seen this morning doing well without complaints. Afebrile vital signs stable. Operative extremity: Neurovascularly intact Dressing clean dry and intact Calves nontender Assessment and plan: Continue with postoperative care Hematocrit 40 discharged today Objective Vital signs: Vital Signs Temp Pulse Resp BP Pulse Ox 06/11/18 06:29 98.0 F 65 16 138/65 92 06/11/18 04:08 98.3 F 70 16 126/78 94 06/11/18 00:22 98.3 F 76 16 130/76 92 06/10/18 21:57 98.7 F 80 16 134/79 94 06/10/18 18:05 98.3 F 64 14 145/87 95 06/10/18 17:15 97.5 F L 61 16 140/71 92 06/10/18 16:43 97.5 F L 62 14 159/85 96 06/10/18 16:15 97.8 F 59 14 135/88 95 06/10/18 15:59 97.2 F L 61 16 142/85 97 06/10/18 15:49 97.0 F L 66 16 147/89 97 06/10/18 15:39 62 16 143/84 97 06/10/18 15:29 71 16 140/85 95 06/10/18 15:19 97.4 F L 59 16 165/78 97 06/10/18 13:59 62 15 135/82 94 06/10/18 13:43 63 15 136/76 91 06/10/18 13:39 66 15 140/74 91 06/10/18 13:28 86 16 155/82 92 06/10/18 13:15 70 15 164/95 94 06/10/18 13:08 68 15 167/88 94 06/10/18 12:34 18 179/83 96 06/10/18 11:56 97.7 F 71 18 179/83 96 Intake and Output 06/10/18 06/11/18 06/11/18 23:59 07:59 15:59 Intake Total 150 / 150 150 / 150 Output Total 1050 / 1050 Balance 150 / 150 -900 / -900 Intake: IV Fluids 100 / 100 100 / 100 Ancef 2,000 MG In 0.9 % Sodium 100 / 100 100 / 100 Chloride 100 ML @ 200 mls/hr IVPB Q8H [facility] Rx#:[id number] Oral 50 / 50 50 / 50 Output: Urine 1050 / 1050 Other: # Voids 1 Weight 96.7 kg Blood Glucose* 201 101 Patient Weight 06/11/18 23:59 Weight 96.7 kg - Labs CBC & BMP: 06/11/18 01:50 Labs: Abnormal lab results WBC 16.1 K/mcL (4.3-11.1) H 06/10/18 16:26 Plt Count 131 K/mcL (140-400) L 06/10/18 16:26 MPV 12.6 fL (9.4-12.4) H 06/10/18 16:26 Neutrophils # 13.5 K/mcL (1.6-8.9) H 06/10/18 16:26 POC Glucose 201 mg/dL (70-99) H 06/10/18 22:36 - VTE Documentation of Mechanical Device: Venous foot pump, device Consult Discharge Plan - Plan Referrals: Sudhakar Cortez DO [Primary Care Provider] -
== END 2018-06-11 10:50 | disposition home or self-care (01) | DRG 483 ==
LOC: SAMDAY 11:21 → 3NENU 16:11
PROVIDERS: ADMIT Orthopaedic Surgery; ATTEND Orthopaedic Surgery

== ENCOUNTER 2018-08-13 08:05 | Inpatient (IN) ==
--- NOTE | 2018-08-13 08:17 | Emergency Department Note ---
Addendum entered and electronically signed by Anton Fritz DO 08/13/18 09:36: Upon discharge the patient got up to leave the emergency department and became very lightheaded and dizzy. Patient state that he felt like he was going to pass out. Patient never actually passed out and did not collapse. Patient is leaned up against the wall and then was escorted back to his room and sat down. Patient states that after he sat down he was feeling better. It started on the patient having symptoms with his bradycardia feel that the patient will need to be admitted to the hospital at this time. The patient is in agreement with this. A BMP and hemoglobin and hematocrit of been added. I called and spoke the admitting hospitalist Dr. Jon and she has accepted the patient to their service. Patient be admitted to the hospital this time for further evaluation and management. Original Note: Disposition Clinical Impression: Bradycardia, TIA (transient ischemic attack) Disposition: Home, Self-Care Condition: Good Instructions: Bradycardia (ED), Transient Ischemic Attack (ED) Reasons to Return/Additional Instructions: Please follow up with your primary care provider in 3-5 days. I have provided information to the [facility]. Please return to the emergency department if you have any worsening of your symptoms including numbness, weakness, tingling, chest pain, shortness of breath, changes in mentation or any other symptoms that may be concerning to you. Please take all of your medications as prescribed. Prescriptions: Clopidogrel [Plavix] 75 mg PO DAILY #30 tablet Referrals: Neurology [facility] [Provider Group] Cardiology [place] [Provider Group] Time of Disposition: 09:02 General Adult HPI - General Stated complaint: bradycardia Time Seen by Provider: 08/13/18 08:06 Source: patient, EMS Limitations: no limitations Nursing Notes Reviewed: Yes Vital Signs Reviewed: Yes - History of Present Illness HPI Narrative: Patient is a 72-year-old male that presents the emergency department transfer. Patient states that she woke up this morning and had approximately 1 hour of numbness to the left side of his body. Patient states that he had a symptom like this approximately 1 week ago. Patient states that he was admitted to the hospital had a CT scan, MRI, echo and carotid Dopplers done. Patient states that everything was normal. Patient was seen at an outside hospital today and was transferred here due to concern for possible TIA-like symptoms and eating bradycardic at 49. Patient states that he has been told as of recent that his heart rate has been low. Patient states that he is feeling like he is back to normal and has no symptoms at this time. The states that he did not have any visible facial droop or weakness. She does state that he was stating that he felt numb on the left side and was a little bit wobbly but otherwise was fine. The and the patient states that he is back to his baseline at this time. Pain Scale: 0 - Related Data Home Medications Medication Instructions Recorded Confirmed Albuterol Sulfate [Proair Hfa] 2 puff IH Q4H PRN 06/10/18 08/08/18 Atorvastatin [Lipitor] 40 mg PO DAILY 06/10/18 08/08/18 Cyanocobalamin (Vitamin B-12) 1,000 mcg PO MOWEFR 06/10/18 08/08/18 [Vitamin B12] Lisinopril [Zestril] 5 mg PO BID 06/10/18 08/08/18 Omeprazole [PriLOSEC] 40 mg PO DAILY 06/10/18 08/08/18 Sildenafil Citrate [Viagra] 100 mg PO DAILY PRN 06/10/18 08/08/18 Naproxen Sodium [Aleve] 220 mg PO BID PRN 08/08/18 08/08/18 Previous Rx's Medication Instructions Recorded Aspirin Enteric Coated [Aspirin EC] 81 mg PO DAILY #30 tablet. 08/09/18 Clopidogrel [Plavix] 75 mg PO DAILY #30 tablet 08/13/18 Allergies Allergy/AdvReac Type Severity Reaction Status Date / Time No Known Allergies Allergy Verified 08/08/18 09:52 All systems ED: reviewed and negative except as stated. Cardiovascular: Denies: chest pain Respiratory: Denies: dyspnea Gastrointestinal: Denies: abdominal pain Neurological: Reports: numbness. Denies: headache, weakness, paresthesias Past Medical History - Past Medical History Medical history: Reports: asthma, GERD, hyperlipidemia, hypertension, other Surgical history: Reports: herniorrhaphy Psychiatric history: Reports: no psych history - Social History Smoking Status: Current every day smoker Smokeless Tobacco Status: No Alcohol use: Reports: none Drug use: Reports: none Physical Exam - General Limitations: no limitations General appearance: alert, in no apparent distress - Head Head exam: atraumatic, normocephalic - Eye Eye exam: Present: normal appearance, EOMI - Neck Neck exam: Present: normal inspection, full ROM, trachea midline - Respiratory Respiratory exam: Present: normal lung sounds bilaterally. Absent: respiratory distress, wheezes - Cardiovascular Cardiovascular exam: Present: normal rhythm, bradycardia, normal heart sounds, +S1, +S2 - Abdominal Exam Abdominal exam: Present: soft, Non-Tender, normal bowel sounds - Neurological Exam Neurological exam: Present: alert, oriented X3, CN II-XII intact - Expanded Neurological Exam Speech: Present: fluid speech Cranial nerves: EOM function (II, III, IV, ): Normal, facial sensation (V): Normal, facial palsy (VII): Normal, gag reflex (IX): Normal, spinal accessory function (XI): Normal, tongue deviation (XII): Normal Cerebellar function: finger to nose: Normal, heel to pelayo: Normal Motor strength - LUE: 5/5 Motor strength - RUE: 5/5 Motor strength - LLE: 5/5 Motor strength - RLE: 5/5 Upper motor neuron exam: pronator drift: Absent bilaterally Sensory exam upper extremity: light touch: Normal Sensory exam lower extremity: light touch: Normal Coma Scale Eye Opening: Spontaneous Coma Scale Motor Response: Obeys Commands Coma Scale Verbal Response: Oriented Coma Scale Total: 15 - Psychiatric Psychiatric exam: Present: normal affect, normal mood - Skin Skin exam: Present: warm, dry, intact Course - Consultations Consultation #1: I called and spoke with the on-call neurologist Dr. Perez and we reviewed the patient's medical history and the history of presenting illness of this patient. And he was in agreement that he does not feel that the patient likely needs to be admitted to the hospital at this time due to the patient having complete resolution of his symptoms and having a extensive workup approximately one week ago. Patient was currently just on aspirin and Dr. Perez had recommended the patient be placed on Plavix 75 daily as well as maintaining his aspirin of 81 mg. He also recommended following up as an outpatient with neurology and cardiology. I feel that this is a reasonable plan. Do not feel that the patient needs any further workup in the emergency department at this time due to the patient having complete resolution of symptoms. Time: 08:57 Vital Signs Temperature 97.7 F 08/13/18 08:07 Pulse Rate 54 11/13/18 08:07 Respiratory Rate 18 08/13/18 08:07 Blood Pressure 182/92 08/13/18 08:07 O2 Sat by Pulse Oximetry 96 08/13/18 08:07 Temperature 97.7 F 08/13/18 08:07 Pulse Rate 54 08/13/18 08:07 Respiratory Rate 18 08/13/18 08:07 Blood Pressure 182/119 08/13/18 08:14 O2 Sat by Pulse Oximetry 96 08/13/18 08:07 Oxygen Delivery Oxygen Delivery Room Air Medical Decision Making - MDM Narrative Medical decision making narrative: Due the patient presenting to the emergency department with concern for possible numbness to the left side we will speak to neurology due to the patient having extensive workup for strokelike symptoms approximate one week ago and being essentially negative. The patient did have an EKG which showed a sinus bradycardia however the patient appears to have a chronic history of a low heart rate and bradycardia based on previous EKGs. Patient has had complete resolution of his symptoms is feeling back to his baseline. I spoke with the on-call neurologist. After discussion feel that is appropriate for the patient be discharged home with recognition follow-up with neurology, cardiology or return to the emergency department if he has any worsening of his symptoms. The patient be recommended to continue his 81 mg aspirin daily as well as start Plavix 75 mg daily at the recommendation of the neurologist. Patient be written a prescription for the Plavix and the patient be discharged home at this time. Patient is stable and appropriate for discharge at the time of discharge. - Medical Records Medical records reviewed: Yes I reviewed the patient's medical records. - Lab Data Lab results reviewed: Yes I reviewed the patient's lab results. - Radiology Data Radiology results reviewed: Yes I reviewed the patient's radiology results. - EKG Data EKG #1 EKG attestation: Yes I reviewed and interpreted this EKG. EKG results narrative: Patient's EKG shows a sinus bradycardia at a rate of 49 bpm, IL interval of 177, QRS duration 109, QTC of 402. No evidence of STEMI and EKG. This is compared to previous EKG on 08/08/18 which shows sinus rhythm at 61 bpm.
[2018-08-13] MEDS ORDERED: Naloxone 0.4 MG/ML INJ IVP PRN (09:42)
[2018-08-13 09:46] LABS: Hematocrit 47.9 % (37.5-50.1)
[2018-08-13 09:47] LABS: Hemoglobin 15.7 g/dL (12.9-16.9)
--- NOTE | 2018-08-13 09:57 | Emergency Department Note ---
Disposition Clinical Impression: Bradycardia, TIA (transient ischemic attack) Disposition: Still a Patient Condition: Good Instructions: Transient Ischemic Attack (ED), Bradycardia (ED) Reasons to Return/Additional Instructions: Please follow up with your primary care provider in 3-5 days. I have provided information to the [place]. Please return to the emergency department if you have any worsening of your symptoms including numbness, weakness, tingling, chest pain, shortness of breath, changes in mentation or any other symptoms that may be concerning to you. Please take all of your medications as prescribed. Prescriptions: Clopidogrel [Plavix] 75 mg PO DAILY #30 tablet Referrals: Cardiology [place] [Provider Group] Neurology [facility] [Provider Group] Forms: ED Satisfaction Letter General Adult HPI - General Chief complaint: ED Arrhythmia/Palpitations Stated complaint: bradycardia Time Seen by Provider: 08/13/18 08:06 Source: patient, EMS Limitations: no limitations - History of Present Illness Pain Scale: 0 - Related Data Home Medications Medication Instructions Recorded Confirmed Albuterol Sulfate [Proair Hfa] 2 puff IH Q4H PRN 06/10/18 08/08/18 Atorvastatin [Lipitor] 40 mg PO DAILY 06/10/18 08/08/18 Cyanocobalamin (Vitamin B-12) 1,000 mcg PO MOWEFR 06/10/18 08/08/18 [Vitamin B12] Lisinopril [Zestril] 5 mg PO BID 06/10/18 08/08/18 Omeprazole [PriLOSEC] 40 mg PO DAILY 06/10/18 08/08/18 Sildenafil Citrate [Viagra] 100 mg PO DAILY PRN 06/10/18 08/08/18 Naproxen Sodium [Aleve] 220 mg PO BID PRN 08/08/18 08/08/18 Previous Rx's Medication Instructions Recorded Aspirin Enteric Coated [Aspirin EC] 81 mg PO DAILY #30 tablet. 08/09/18 Clopidogrel [Plavix] 75 mg PO DAILY #30 tablet 08/13/18 Allergies Allergy/AdvReac Type Severity Reaction Status Date / Time No Known Allergies Allergy Verified 08/08/18 09:52 Cardiovascular: Denies: chest pain Respiratory: Denies: dyspnea Gastrointestinal: Denies: abdominal pain Neurological: Reports: numbness. Denies: headache, weakness, paresthesias Past Medical History - Past Medical History Medical history: Reports: asthma, GERD, hyperlipidemia, hypertension, other Surgical history: Reports: herniorrhaphy Psychiatric history: Reports: no psych history - Social History Smoking Status: Current every day smoker Smokeless Tobacco Status: No Alcohol use: Reports: none Drug use: Reports: none Physical Exam - General Limitations: no limitations General appearance: alert, in no apparent distress Course Vital Signs Temperature 97.7 F 08/13/18 08:07 Pulse Rate 54 08/13/18 08:07 Respiratory Rate 18 08/13/18 08:07 Blood Pressure 182/92 08/13/18 08:07 O2 Sat by Pulse Oximetry 96 08/13/18 08:07 Temperature 97.7 F 08/13/18 08:07 Pulse Rate 50 08/13/18 09:43 Respiratory Rate 12 08/13/18 09:43 Blood Pressure 185/85 08/13/18 09:43 O2 Sat by Pulse Oximetry 98 08/13/18 09:43 Oxygen Delivery Oxygen Delivery Room Air Medical Decision Making - Lab Data Result diagrams: 08/13/18 08:16 Lab Results 08/13/18 Range/Units 08:16 Hgb 15.7 D (12.9-16.9) g/dL Hct 47.9 (37.5-50.1) % Attestation Statement - Attestation Attestation: I examined this patient and my medical decision-making was reviewed with the Resident Physician. I agree with the documented findings, disposition and treatment plan as described except to the extent set forth below. Patient presented with symptoms suggestive of a TIA, resolved in less than an hour, a symptomatically on arrival. Had a complete TIA workup on a recent admission. Dr. Fritz spoke with neurology who recommended adding Plavix to his medication regimen and outpatient follow-up with neurology as well as with cardiology. As patient was being prepared for discharge, he had a near syncopal episode, heart rate down to low 40s area he is not on any AV usha blockers. Suspicion is that he would likely require a pacemaker for sick sinus syndrome. Patient is being admitted to the hospital.
[2018-08-13 10:45] LABS: BUN/Creatinine Ratio 11 (6-26); Blood Urea Nitrogen 10 mg/dL (8-23); Carbon Dioxide 26 mEq/L (23-29); Chloride 106 mEq/L (98-107); Glucose 137 mg/dL (70-105); Osmolality,Calculated 295 (280-300); Potassium 4.2 mEq/L (3.5-5.1); Sodium 142 mEq/L (136-145); eGFR For Non-African Americans > 60 (> 60)
[2018-08-13] MEDS ORDERED: Dextrose Gel 15 GM/37.5 ML TUBE PO PRN ×2 (11:48)
[2018-08-13] MEDS ORDERED: *HR* Dextrose 50 % in Water (Syg) 50 ML SYRINGE IVP PRN (11:48)
[2018-08-13] MEDS ORDERED: D5% in Water 1,000 ML IVC PRN (11:48)
--- NOTE | 2018-08-13 11:56 | Internal Med History&Physical ---
Date of Encounter: 08/13/18 Time of Encounter: 11:51 Internal Medicine - H&P: HPI Chief complaint: Feeling lighteheaded Admitted From: Home Plans for Post Hospital Care: Home History of present illness: Mr. Shah is a 72 year old male with known past medical history of hypertension, hyperlipidemia, COPD on chronic tobacco dependence patient who was recently in this facility from 08/08 to 08/09 for a TIA work up, discharged with no significant findings He represented to the ER with complains of left sided numbness, which started an hr before presentation and resolved prior to presentation to the ER. He denied dizziness/CP/palpitations/SOB/n/v/diarrhea/ or GI symptoms. According to his , the patient has also been having heavy night sweats, which are not related with weight loss, or cough, no unintentional weight loss, no recent travels or sick contacts Prior stroke work up one week ago, including CT scan, MRI, echo and carotid Doppler done were within normal limits. He has no neurologic complains of def icits Dr. Root was consulted in the ER and the recommendation was to discharge the patient home, with addition of Plavix to his current regimen. However, when patient got up to leave the ER, he experienced dizziness and light headedness and discharge was cancelled due to co-existing bradycardia. EKG from ER had shown sinus bradycardia of 49. His HR from previous visits ranged from 57 to 77. He is not on a BB He will be placed on observation for bradycardia with dizziness, blood pressure was also elevated and uncontrolled on presentation and he is currently asymptomatic at time of review. He is full code Past Med Surg Social Fam HX - Past Medical History Medical history: asthma, GERD, hyperlipidemia, hypertension, other Additional medical history: diverticulitis, decreased urine stream Psychiatric history: no psych history - Past Surgical History Surgical History: herniorrhaphy Additional surgical history: bilateral shoulder replacement - Social History Smoking Status: Current every day smoker Smokeless Tobacco Status: No Alcohol use: none Drug use: none - Family History Mother Hx Family Cardiac Disorders: Yes Father Hx Family Cardiac Disorders: Yes (tia) Internal Medicine - H&P: Meds Albuterol Sulfate [Proair Hfa] 2 puff IH Q4H PRN 06/10/18 [History] Atorvastatin [Lipitor] 40 mg PO DAILY 06/10/18 [History] Cyanocobalamin (Vitamin B-12) [Vitamin B12] 1,000 mcg PO MOWEFR 06/10/18 [History] Lisinopril [Zestril] 5 mg PO BID 06/10/18 [History] Omeprazole [PriLOSEC] 40 mg PO DAILY 06/10/18 [History] Sildenafil Citrate [Viagra] 100 mg PO DAILY PRN 06/10/18 [History] Naproxen Sodium [Aleve] 220 mg PO BID PRN 08/08/18 [History] Aspirin Enteric Coated [Aspirin EC] 81 mg PO DAILY #30 tablet. 08/09/18 [Rx] Clopidogrel [Plavix] 75 mg PO DAILY #30 tablet 08/13/18 [Rx] Allergy/AdvReac Type Severity Reaction Status Date / Time No Known Allergies Allergy Verified 08/08/18 09:52 All Systems PM: A 10-system review of systems was performed and is negative for pertinent findings except as documented above in the HPI. - Constitutional Constitutional: as per HPI - EENT Eyes: as per HPI Ears: as per HPI Nose, mouth and throat: as per HPI - Cardiovascular Cardiovascular ROS IM: as per HPI - Respiratory Respiratory: as per HPI - Gastrointestinal Gastrointestinal: as per HPI - Musculoskeletal Musculoskeletal ROS IM: as per HPI - Integumentary Integumentary IM: as per HPI - Neurological Neurological ROS: as per HPI - Hematologic/Lymphatic Hematologic/Lymphatic: as per HPI - Constitutional Vitals: Temp Pulse Resp BP Pulse Ox 97.7 F 57 14 169/88 98 08/13/18 08:07 08/13/18 10:25 08/13/18 10:25 08/13/18 10:25 08/13/18 10:25 Exam: Vital signs noted and stable Gen: NAD, Speaks coherently HEENT: Moist oral mucosa, anicteric, not pale Neuro: AAOX3, no facial paralysis, CN grossly intact, no speech deficits, no motor or sensory deficits, gait is not tested due to complains of dizziness Chest: Equal movement, no scars, no chest wall tenderness Resp: CTAB Heart: S1, S2 only, RRR (at time of eval) no m/g/r Abdomen: Soft, not tender, moves with respiration, BS present in al quadrants, no palpably enlarged organs Extremities: Normal inspection of joints, no pedal edema, pulses present and equal bilaterally : Deferred Skin: No rash Psych: Appropriate affect Internal Med - H&P Results - Labs CBC & Chem 7: 08/13/18 08:16 08/13/18 08:16 Labs: Short CBC 08/13/18 Range/Units 08:16 Hgb 15.7 D (12.9-16.9) g/dL Hct 47.9 (37.5-50.1) % BMP 08/13/18 08:16 Sodium 142 Potassium 4.2 Chloride 106 Carbon Dioxide 26 BUN 10 Creatinine 0.94 Glucose 137 H Calcium 9.0 - Assessment and plan (1) Bradycardia Current Visit: Yes Status: Acute Assessment and plan: Patient with HR at baseline usually 60s VR on EKG was 49, however HR has been 55-60 since arrival It is unlikely that the bradycardia is the cause of his dizziness in the setting of preserved and uncontrolled blood pressure Not on any BB, continue to monitor on telemetry ECHO from 08/09 showed LVEF 55-60%, normal LV size and function, mild LVDD, mild-moderate Pulm HTN with no significant valvular dysfunction Will check TSH (2) Tobacco dependence Current Visit: Yes Status: Chronic Assessment and plan: encouraged cessation NRT prn (3) DMII (diabetes mellitus, type 2) Current Visit: Yes Status: Chronic Assessment and plan: SSI, FS ACHS, ADA diet A1C was 6.5% in 05/2018 Qualifiers: Diabetes mellitus group home insulin use: unspecified salvage determiner insulin use status Diabetes mellitus complication status: with unspecified complications Qualified Code(s): E11.8 - Type 2 diabetes mellitus with unspecified complications (4) HLD (hyperlipidemia) Current Visit: Yes Status: Chronic Assessment and plan: continue home meds Qualifiers: Hyperlipidemia type: unspecified Qualified Code(s): E78.5 - Hyperlipidemia, unspecified (5) HTN (hypertension) Current Visit: Yes Status: Chronic Assessment and plan: Uncontrolled On Lisinopril 5mg BID Symptomatic , with dizziness and recurrent TIA-like symptoms Add Norvasc to current regimen, titrate up as needed, continue to monitor Qualifiers: Hypertension type: essential hypertension Qualified Code(s): I10 - Essential (primary) hypertension (6) Obesity (BMI 30.0-34.9) Current Visit: Yes Status: Chronic Assessment and plan: Lifestyle modification (7) Dizziness Current Visit: Yes Status: Acute Assessment and plan: Head CT unremarkable. Check orthostats Fall precautions Control blood pressure and continue to monitor - Time Spent With Patient Total time spent is greater than 50% in coordination of care (as documented) at patient's floor/unit and/or counseling patient:
[2018-08-13] MEDS: Insulin LISPRO 300 UNITS/3 ML VIAL SQ SCH ×3 (13:36→22:27)
[2018-08-14] MEDS: Insulin LISPRO 300 UNITS/3 ML VIAL SQ SCH ×4 (08:33→20:35)
[2018-08-14] MEDS: Aspirin Enteric Coated 81 MG Tablet PO SCH (08:33)
[2018-08-14] MEDS ORDERED: Cyanocobalamin (B-12) 1,000 MCG TABLET PO SCH (09:43)
--- NOTE | 2018-08-14 10:51 | Internal Med Progress Note ---
Hospitalist Progress Note - Encounter Date of Encounter: 08/14/18 Time of Encounter: 10:49 - Subjective Interval History: Mr. Shah is a 72 year old male with known past medical history of hypertension, hyperlipidemia, COPD on chronic tobacco dependence patient who was recently in this facility from 08/08 to 08/09 for a TIA work up, discharged with no sign ificant findings. 3 presented to the ED with left-sided numbness and tingling which resolved upon arrival. Upon discharge the ED patient began to experience dizziness, weakness fatigue and bradycardia. Symptomatically bradycardia. Patient denies any current dizziness or fatigue at this time. He is sinus rhythm with pulse of 78. - Exam Vitals: Temp Pulse Resp BP Pulse Ox 97.9 F 78 16 176/81 95 08/14/18 08:04 08/14/18 09:59 08/14/18 08:04 08/14/18 09:59 08/14/18 08:04 Exam: Vital signs noted and stable Gen: NAD, Speaks coherently HEENT: Moist oral mucosa, anicteric, not pale Neuro: AAOX3, no facial paralysis, CN grossly intact, no speech deficits, no motor or sensory deficits, gait is not tested due to complains of dizziness Chest: Equal movement, no chest wall tenderness Resp: CTA bilaterally AP and L Heart: S1, S2, RRR no m/g/r Abdomen: Soft, not tender, moves with respiration, BS present in al quadrants, no palpably enlarged organs Extremities: Normal inspection of joints, no pedal edema, pulses present and equal bilaterally : Without abdominal tenderness, NABS Skin: No rash or lesions Psych: Appropriate affect - Assessment and Plan (1) Bradycardia Current Visit: Yes Status: Acute Assessment and Plan: Patient with HR at baseline usually 60s HR on EKG was 49; consider symptomatically bradycardia however, is likely not the direct cause of his dizziness in the setting of uncontrolled hypertension However this morning patient's heart rate is 78 Not on any BB, continue to monitor on telemetry ECHO from 08/09 showed LVEF 55-60%, normal LV size and function, mild LVDD, mild- moderate Pulm HTN with no significant valvular dysfunction Consult cardiology to discuss the need for further intervention versus monitoring outpatient with Holter TSH checked and WNL 1.553 (2) DMII (diabetes mellitus, type 2) Current Visit: Yes Status: Chronic Assessment and Plan: Blood glucose remained stable on current regimen Continue SSI, FS ACHS, ADA diet A1C was 6.5% in 05/2018 (3) HTN (hypertension) Current Visit: Yes Status: Chronic Assessment and Plan: Remains Uncontrolled On Lisinopril 5mg BID Symptomatic , with dizziness and recurrent TIA-like symptoms Norvasc added yesterday to current regimen, Monitor this afternoon and titrate up as needed (4) HLD (hyperlipidemia) Current Visit: Yes Status: Chronic Assessment and Plan: continue Lipitor (5) Obesity (BMI 30.0-34.9) Current Visit: Yes Status: Chronic Assessment and Plan: Discussed Lifestyle modification (6) Tobacco dependence Current Visit: Yes Status: Chronic Assessment and Plan: Strongly encouraged cessation (7) Dizziness Current Visit: Yes Status: Acute Assessment and Plan: Head CT unremarkable. Negative for orthostasis Fall precautions Control blood pressure and continue to monitor Has had recent neurological workup for prior admission for TIA Prior workup unremarkable including normal MRI of brain and CT of head - Time Spent with Patient Total time spent is greater than 50% in coordination of care (as documented) at patient's floor/unit and/or counseling patient: less than 15 minutes Plan of Care Discussed with: patient Internal Medicine: Result - Labs CBC & Chem 7: 08/13/18 08:16 08/13/18 08:16 - Impressions Impressions Head CT 08/13/18 12:14 IMPRESSION: Stable CT brain with no acute intracranial abnormality and redemonstration of chronic ischemic findings as described. D/ / Cassandra Diaz MD / Cassandra Diaz MD Interpreting Provider: Cassandra Diaz MD Consult Discharge Plan - Plan Referrals: Merry Bray CNP [Partnered Physician] - 08/16/18 1:00 pm (2) DMII (diabetes mellitus, type 2) Qualifiers: Diabetes mellitus exterminator helper termite insulin use: unspecified exterminator helper termite insulin use status Diabetes mellitus complication status: with unspecified complications Q ualified Code(s): E11.8 - Type 2 diabetes mellitus with unspecified complications (3) HTN (hypertension) Qualifiers: Hypertension type: essential hypertension Qualified Code(s): I10 - Essential (primary) hypertension (4) HLD (hyperlipidemia) Qualifiers: Hyperlipidemia type: unspecified Qualified Code(s): E78.5 - Hyperlipidemia, unspecified
--- NOTE | 2018-08-14 12:53 | Electrocardiograph Report ---
[place] [facility] [facility] Test Date: 2018-08-13 Pat Name: Josep Shah Department: EXAM2 Room: 3B38 Gender: M Funeral Director And Embalmer: : 1945 Requested By: Ranyd Lagunas Order Number: [id number] Reading MD: Liu Isaacs Measurements Intervals [place] Rate: 49 P: 55 NE: 177 QRS: -33 QRSD: 109 T: 48 QT: 445 QTc: 402 Interpretive Statements Sinus bradycardia Left axis deviation Borderline low voltage, extremity leads Electronically Signed On 08-14-2018 12:52:06 EST by Liu Isaacs
[2018-08-14] MEDS ORDERED: Naloxone 0.4 MG/ML INJ IVP PRN (14:37)
--- NOTE | 2018-08-14 15:10 | Cardiology Consult Note ---
<Lidya Lee - Last Filed: 08/14/18 15:06> Date of Encounter: 08/14/18 Time of Encounter: 14:00 Assessment and Plan (1) Left arm pain Current Visit: Yes Status: Acute Per cardiology: -Presented with exertional left arm numbess, burning. Radiating into left neck, face. Reports associated diaphoresis. -Denies chest pain. -Signicicant risk factors for CAD: HTN, DM, HLD, tobacco abuse, family history. -Recent TTE last admission with LVEF preserved, no segmental wall motion abnromalities noted. -ECG with no acute ischemic changes. -Denies previous ischemic evaluation. -Will proceed with excercise nuclear stress test in am to determine if ischemia could be contributing to symptoms. (2) Bradycardia Current Visit: Yes Status: Acute Per cardiology: -Had bradycardic event in ER. -Reported dizziness. -NO recurrence of bradycardia on tele. -K, TSH within normal limits. -Continue telemetry. -Continue to avoid AV usha blockers. -Will continue to monitor. Discussion w patient/family: The assessment and plan as outlined above was discussed with the patient and/or family members who expressed understanding and agreement. All questions were answered. Thank you for involving us in the care of your patient. Please call with any questions. Discussed and reviewed wit . History of Present Illness Consult date: 08/14/18 Requesting physician: Mark Campuzano Consult reason: bradycardia Chief complaint: left arm numbness History of present illness: Mr. Shah is a 72 year old male with a relevant past medical history of HTN, DM, HLD, GERD, tobacco abuse who presented to [facility] with complaints of left arm, neck, and face numbness. Patient reports recent event and was worked up for TIA. Patient states symptoms started yesterday while up walking around garage. Patient then decided to come to ER. Patient reports he was getting ready walk out of ER after discharge, when he had recurrence of symptoms. Patient states he was also dizzy and diaphoretic in ER. Patient denies chest pain or shortness of breath. However, does report some left arm burning. Past Med Surg Social Fam HX - Past Medical History Attestation: Yes The following information was validated with the patient. Source: patient, old records reviewed, obtained from family Medical history: asthma, diabetes, GERD, hyperlipidemia, hypertension, other Additional medical history: diverticulitis, decreased urine stream Psychiatric history: no psych history - Past Surgical History Surgical History: herniorrhaphy Additional surgical history: bilateral shoulder replacement - Social History Smoking Status: Current every day smoker Smokeless Tobacco Status: No Alcohol use: none Drug use: none - Family History Mother Hx Family Cardiac Disorders: Yes Father Hx Family Cardiac Disorders: Yes (tia) Medications and Allergies Albuterol Sulfate [Proair Hfa] 2 puff IH Q4H PRN 06/10/18 [History] Atorvastatin [Lipitor] 40 mg PO DAILY 06/10/18 [History] Cyanocobalamin (Vitamin B-12) [Vitamin B12] 1,000 mcg PO MOWEFR 06/10/18 [History] Lisinopril [Zestril] 5 mg PO BID 06/10/18 [History] Omeprazole [PriLOSEC] 40 mg PO DAILY 06/10/18 [History] Sildenafil Citrate [Viagra] 100 mg PO DAILY PRN 06/10/18 [History] Naproxen Sodium [Aleve] 220 mg PO BID PRN 08/08/18 [History] Aspirin Enteric Coated [Aspirin EC] 81 mg PO DAILY #30 tablet. 08/09/18 [Rx] Clopidogrel [Plavix] 75 mg PO DAILY #30 tablet 08/13/18 [Rx] Allergy/AdvReac Type Severity Reaction Status Date / Time No Known Allergies Allergy Verified 08/08/18 09:52 All Systems Review: The remainder of the systems were reviewed and are negative - Cardiovascular Cardiovascular: as per HPI, diaphoresis, radiating jaw, neck or arm pain, lightheadedness Physical Examination Vital Signs, Last 4 Hours Temp Pulse Resp BP Pulse Ox 08/14/18 14:45 97.8 F 68 20 142/82 94 General: Conversant, No Apparent Distress HEENT: Atraumatic, Normocephaly, Mucus Membranes Moist Neck: No JVD, Normal carotid pulses Cardiac: Reg Rate and Rhythm, Normal S1 and S2, No Murmur Lungs: Normal Breath Sounds, No Wheeze, Rales, Rhonchi Neuro: Alert and responsive, No focal deficits noted Abdomen: Soft, Non-Tender Skin: No rashes noted on visualized skin Musculoskeletal: No Chest Wall Tenderness Extremities: No Clubbing, No Cyanosis, No Edema, Normal Pulses Results 08/13/18 08:16 08/13/18 08:16 Active Medications Aspirin (Aspirin Ec) 81 mg PO DAILY [facility] Stop: 02/13/19 09:01 Last Admin: 08/14/18 08:33 Dose: 81 mg Atorvastatin Calcium (Lipitor) 40 mg PO HS [facility] Stop: 02/13/19 21:01 Clopidogrel Bisulfate (Plavix) 75 mg PO DAILY [facility] Stop: 02/13/19 09:01 Last Admin: 08/14/18 08:33 Dose: 75 mg Cyanocobalamin (Vitamin B12) 1,000 mcg PO MOWEFR [facility] Stop: 02/13/19 09:44 Last Admin: 08/14/18 08:52 Dose: 1,000 mcg Dextrose/Water (Dextrose 50% (Syg)) 25 ml IVP AD PRN PRN Reason: Hypoglycemia Stop: 02/12/19 11:49 Enoxaparin Sodium (Lovenox) 40 mg SQ 0600 [facility]; Protocol Stop: 02/14/19 06:01 Glucagon (Glucagen) 1 mg IM ONCE PRN PRN Reason: Hypoglycemia Stop: 02/12/19 11:49 Glucose (Gluctose) 15 gm PO ONCE PRN PRN Reason: Hypoglycemia Stop: 02/12/19 11:49 Glucose (Gluctose) 30 gm PO ONCE PRN PRN Reason: Hypoglycemia Stop: 02/12/19 11:49 Dextrose (Dextrose 5%) 1,000 mls @ 100 mls/hr IVC .Q10H PRN PRN Reason: HYPOGLYCEMIA Stop: 02/12/19 11:49 Insulin Human Lispro (Humalog) 0 units SQ HS [facility]; Protocol Stop: 02/12/19 21:01 Last Admin: 08/13/18 22:27 Dose: Not Given Insulin Human Lispro (Humalog) 0 units SQ TIDAC [facility]; Protocol Stop: 02/13/19 07:31 Last Admin: 08/14/18 08:33 Dose: Not Given Lisinopril (Zestril) 5 mg PO BID [facility]; Protocol Stop: 02/12/19 21:01 Last Admin: 08/14/18 08:33 Dose: 5 mg Naloxone HCl (Narcan) 0.4 mg IVP Q2MIN PRN PRN Reason: SEE COMMENTS Stop: 02/12/19 09:43 Omeprazole (Prilosec) 40 mg PO DAILY [facility] Stop: 02/13/19 09:01 Last Admin: 08/14/18 08:32 Dose: 40 mg Laboratory Tests 08/13/18 08/13/18 08/13/18 08:16 08:16 12:11 Hgb 15.7 D Potassium 4.2 TSH 1.553 - Imaging and Cardiology Chest Xray: report reviewed Stress Test: pending Echo: report reviewed - EKG Interpretation EKG results cardiology: personally reviewed (ECG with SB, HR 48.), other (Telemetry reviewed with average HR previous 12 hours noted to be 66, SR. PVCs and PACs noted.) Consult Discharge Plan - Plan Referrals: Merry Bray CNP [Partnered Physician] - 08/16/18 1:00 pm <Liu Isaacs - Last Filed: 08/14/18 15:27> Date of Encounter: 08/14/18 - Attending Attestation I have personally performed a face to face evaluation on this patient. I have reviewed and agree with the documented findings and care plan as documented by the CABIN CREW. History and Exam by me shows: 72-year-old male with atypical chest pain and dizziness noted to have sinus bradycardia on telemetry. Recent echo shows normal EF with mild to moderate pulmonary hypertension. In light of risk factors for coronary artery disease, I agree with stress test to rule out ischemia. Thanks, Liu sIaacs MD Assessment and Plan Discussion w patient/family: The assessment and plan as outlined above was discussed with the patient and/or family members who expressed understanding and agreement. All questions were answered. Thank you for involving us in the care of your patient. Please call with any questions. History of Present Illness History of present illness: Mr. Shah is a 72 year old male All Systems Review: The remainder of the systems were reviewed and are negative Physical Examination Vital Signs, Last 4 Hours Temp Pulse Resp BP Pulse Ox 08/14/18 14:45 97.8 F 68 20 142/82 94 Results 08/13/18 08:16 08/13/18 08:16
[2018-08-15] MEDS ORDERED: Regadenoson 0.4 MG/5 ML SYRINGE IVP ONE (05:41)
[2018-08-15] MEDS ORDERED: *HR* Enoxaparin 40 MG/0.4 ML SYRINGE SQ SCH (06:00)
[2018-08-15] MEDS: Aspirin Enteric Coated 81 MG Tablet PO SCH (09:58)
[2018-08-15] MEDS: Insulin LISPRO 300 UNITS/3 ML VIAL SQ SCH ×2 (09:59→12:38)
--- NOTE | 2018-08-15 12:48 | Cardiology Progress Note ---
Date of Encounter: 08/15/18 Time of Encounter: 12:30 Assessment and Plan (1) Left arm pain Current Visit: Yes Status: Acute Per cardiology: -Presented with exertional left arm numbess, burning. Radiating into left neck, face. Reports associated diaphoresis. Denies recurrence of symptoms. -Denies chest pain. -Signicicant risk factors for CAD: HTN, DM, HLD, tobacco abuse, family history. -Recent TTE last admission with LVEF preserved, no segmental wall motion abnromalities noted. -ECG with no acute ischemic changes. -Denies previous ischemic evaluation. -Stress test resulted, negative for ischemia or infarct. -Cardiology will sign off and will follow in outpatient setting, Follow up set. (2) Bradycardia Current Visit: Yes Status: Acute Per cardiology: -Had bradycardic event in ER. -Reported dizziness. -NO recurrence of bradycardia on tele. Average HR 64. -K, TSH within normal limits. -Continue to avoid AV usha blockers. Discussion w patient/family: The assessment and plan as outlined above was discussed with the patient and/or family members who expressed understanding and agreement. All questions were answered. Thank you for involving us in the care of your patient. Please call with any questions. Discussed and reviewed wit . Subjective Principal diagnosis: dizziness Interval history: Patient denies recurrence of dizziness. Denies chest pain. Denies shortness of breath. Objective Vital Signs, Last 4 Hours Temp Pulse Resp BP Pulse Ox 08/15/18 12:30 185/92 08/15/18 09:51 97.9 F 60 14 169/92 94 General: Conversant, No Apparent Distress HEENT: Atraumatic, Normocephaly, Mucus Membranes Moist Neck: No JVD, Normal carotid pulses Cardiac: Reg Rate and Rhythm, Normal S1 and S2, No Murmur Lungs: Normal Breath Sounds, No Wheeze, Rales, Rhonchi Neuro: Alert and responsive, No focal deficits noted Abdomen: Soft, Non-Tender Skin: No rashes noted on visualized skin Musculoskeletal: No Chest Wall Tenderness Extremities: No Clubbing, No Cyanosis, No Edema, Normal Pulses Results 08/13/18 08:16 08/13/18 08:16 Lab Results Active Medications Aspirin (Aspirin Ec) 81 mg PO DAILY YAMEL Stop: 02/13/19 09:01 Last Admin: 08/15/18 09:58 Dose: 81 mg Atorvastatin Calcium (Lipitor) 40 mg PO HS YAMEL Stop: 02/13/19 21:01 Last Admin: 08/14/18 20:38 Dose: 40 mg Clopidogrel Bisulfate (Plavix) 75 mg PO DAILY [facility] Stop: 02/13/19 09:01 Last Admin: 08/15/18 09:58 Dose: 75 mg Cyanocobalamin (Vitamin B12) 1,000 mcg PO MOWEFR [facility] Stop: 02/13/19 09:44 Last Admin: 08/14/18 08:52 Dose: 1,000 mcg Dextrose/Water (Dextrose 50% (Syg)) 25 ml IVP AD PRN PRN Reason: Hypoglycemia Stop: 02/12/19 11:49 Enoxaparin Sodium (Lovenox) 40 mg SQ 0600 [facility]; Protocol Stop: 02/14/19 06:01 Last Admin: 08/15/18 05:31 Dose: 40 mg Glucagon (Glucagen) 1 mg IM ONCE PRN PRN Reason: Hypoglycemia Stop: 02/12/19 11:49 Glucose (Gluctose) 15 gm PO ONCE PRN PRN Reason: Hypoglycemia Stop: 02/12/19 11:49 Glucose (Gluctose) 30 gm PO ONCE PRN PRN Reason: Hypoglycemia Stop: 02/12/19 11:49 Hydralazine HCl (Hydralazine) 10 mg IVP ONCE ONE Stop: 08/15/18 12:41 Dextrose (Dextrose 5%) 1,000 mls @ 100 mls/hr IVC .Q10H PRN PRN Reason: HYPOGLYCEMIA Stop: 02/12/19 11:49 Insulin Human Lispro (Humalog) 0 units SQ HS [facility]; Protocol Stop: 02/12/19 21:01 Last Admin: 08/14/18 20:35 Dose: Not Given Insulin Human Lispro (Humalog) 0 units SQ TIDAC [facility]; Protocol Stop: 02/13/19 07:31 Last Admin: 08/15/18 12:38 Dose: Not Given Lisinopril (Zestril) 5 mg PO BID [facility]; Protocol Stop: 02/12/19 21:01 Last Admin: 08/15/18 09:58 Dose: 5 mg Naloxone HCl (Narcan) 0.4 mg IVP Q2MIN PRN PRN Reason: SEE COMMENTS Stop: 02/12/19 09:43 Omeprazole (Prilosec) 40 mg PO DAILY YAMEL Stop: 02/13/19 09:01 Last Admin: 08/15/18 09:58 Dose: 40 mg Laboratory Tests 08/14/18 15:28 Troponin I < 0.03 - Imaging and Cardiology Chest Xray: report reviewed Stress Test: report reviewed Echo: report reviewed - EKG Interpretation EKG results cardiology: other (Telemetry reviewed with average HR previous 12 hours noted to be 64, SR. PVCs, PACs noted.) Consult Discharge Plan - Plan Referrals: Merry Bray, JENS [Partnered Physician] - 08/16/18 1:00 pm
[2018-08-15 13:57] VITALS: BP 131/86
--- NOTE | 2018-08-15 14:59 | Discharge Summary ---
- NOTES TO OUTPATIENT PROVIDER Notes to Outpatient Provider: Basic d/c f/u, No pending studies Orders not resulted at time of discharge: Pending orders 08/14/18 15:05 NM bushra perf SPECT multi [NM] Routine Date of Encounter: 08/15/18 Time of Encounter: 14:56 - Discharge Diagnosis (1) Bradycardia Priority: Primary Status: Resolved (2) DMII (diabetes mellitus, type 2) Priority: Secondary Status: Chronic Qualifiers: Diabetes mellitus terminal superintendent insulin use: unspecified terminal superintendent insulin use status Diabetes mellitus complication status: with unspecified complications Qualified Code(s): E11.8 - Type 2 diabetes mellitus with unspecified complications (3) HTN (hypertension) Priority: Secondary Status: Chronic Qualifiers: Hypertension type: essential hypertension Qualified Code(s): I10 - Essential (primary) hypertension (4) HLD (hyperlipidemia) Priority: Secondary Status: Chronic Qualifiers: Hyperlipidemia type: unspecified Qualified Code(s): E78.5 - Hyperlipidemia, unspecified (5) Obesity (BMI 30.0-34.9) Priority: Secondary Status: Chronic (6) Tobacco dependence Priority: Secondary Status: Chronic (7) Dizziness Priority: Secondary Status: Acute Hospital course: Mr. Shah is a 72 year old male admitted with dizziness thought to be caused by accelerated hypertension however, there is also concern for symptomatic bradycardia with heart rate in the high 40s. Bradycardia has resolved. The patient is not on any offending medications which would have prompted bradycardia. Etiology of bradycardia remains unclear. Dizziness was briefly limited and resolved on its own. He underwent stress test for further evaluation was found to be negative for ischemia. Per recommendations of cardiology, discharge. Follow-up with PCP in one week. Outpatient follow-up with cardiology. Consider Holter monitor outpatient showed bradycardia returned. Discharge discussed with: patient, nurse, sales and service consultant - Time Spent with Patient Total time spent providing and/or coordinating discharge services: Less than 30 minutes - Discharge Medications Home Medications: Albuterol Sulfate [Proair Hfa] 2 puff IH Q4H PRN 06/10/18 [History] Atorvastatin [Lipitor] 40 mg PO DAILY 06/10/18 [History] Cyanocobalamin (Vitamin B-12) [Vitamin B12] 1,000 mcg PO MOWEFR 06/10/18 [History] Lisinopril [Zestril] 5 mg PO BID 06/10/18 [History] Omeprazole [PriLOSEC] 40 mg PO DAILY 06/10/18 [History] Sildenafil Citrate [Viagra] 100 mg PO DAILY PRN 06/10/18 [History] Naproxen Sodium [Aleve] 220 mg PO BID PRN 08/08/18 [History] Aspirin Enteric Coated [Aspirin EC] 81 mg PO DAILY #30 tablet. 08/09/18 [Rx] Clopidogrel [Plavix] 75 mg PO DAILY #30 tablet 08/13/18 [Rx] Allergies/Adverse Reactions: Allergy/AdvReac Type Severity Reaction Status Date / Time No Known Allergies Allergy Verified 08/08/18 09:52 Date of admission: 08/14/18 14:37 Primary care physician: Sudhakar Cortez DO Consults: 08/14/18 10:44 Consult to Cardiology [CONS] Routine Comment: Consulting Provider: Cardiology Renate Reason for Consult: symptomatic bradycardia Time Notified: 10:44 Call Completed: Yes Discharging clinician: Mark Campuzano Anticipated date of discharge: 08/15/18 - Constitutional Vitals: Temp Pulse Resp BP Pulse Ox 97.9 F 60 14 131/86 94 08/15/18 09:51 08/15/18 09:51 08/15/18 09:51 08/15/18 13:57 08/15/18 09:51 Exam: Vital signs noted and stable Gen: NAD, Speaks coherently HEENT: Moist oral mucosa, anicteric, not pale Neuro: AAOX3, no facial paralysis, CN grossly intact, no speech deficits, no motor or sensory deficits, gait is not tested due to complains of dizziness Chest: Equal movement, no chest wall tenderness Resp: CTA bilaterally AP and L Heart: S1, S2, RRR, no murmurs rubs or gallops Abdomen: Soft, not tender, moves with respiration, BS present in al quadrants, no palpably enlarged organs Extremities: Normal inspection of joints, no pedal edema, pulses present and equal bilaterally : Without abdominal tenderness, NABS Skin: No rash or lesions Psych: Appropriate affect - Patient Status Disposition: Home, Self-Care Condition: Good Functional capacity at discharge: independent ambulation Overall status at discharge: patient is back to baseline - Discharge Instructions Follow Up With: Merry Bray BLOCK MAKING MACHINE OPERATOR [Partnered Physician] - 08/16/18 1:00 pm
== END 2018-08-15 15:55 | disposition home or self-care (01) | DRG 309 ==
LOC: EMEROOARM 08:05 → 3BNU 08:05 → EMEROOARM 09:19 → 3BNU 12:57
PROVIDERS: ADMIT Internal Medicine; ATTEND Internal Medicine

== ENCOUNTER 2018-08-29 10:17 | Observation (INO) ==
--- NOTE | 2018-08-29 11:06 | Emergency Department Note ---
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 It initially was pl anned on being placed tomorrow however because of his symptoms occurred this morning they spoke with cardiology who decided to place a Holter today. Paramedics did come but because the patient's symptoms had resolved patient was not transported here. He denies any numbness of the leg. No weakness of the extremities. No slurred speech, facial droop or confusion. Has been evaluated for similar symptoms twice already this month with MRI scan and CT scan, carotid Doppler, echocardiogram. states he has not seen neurology and the patient denies any chest pain, shortness of breath. Social history: Smoker, no alcohol or drugs Pain Scale: 0 - Related Data Home Medications Medication Instructions Recorded Confirmed Albuterol Sulfate [Proair Hfa] 2 puff IH Q4H PRN 06/10/18 08/29/18 Atorvastatin [Lipitor] 40 mg PO DAILY 06/10/18 08/29/18 Cyanocobalamin (Vitamin B-12) 1,000 mcg PO MOWEFR 06/10/18 08/29/18 [Vitamin B12] Omeprazole [PriLOSEC] 40 mg PO DAILY 06/10/18 08/29/18 Sildenafil Citrate [Viagra] 100 mg PO DAILY PRN 06/10/18 08/29/18 Naproxen Sodium [Aleve] 220 mg PO BID PRN 08/08/18 08/29/18 Previous Rx's Medication Instructions Recorded Aspirin Enteric Coated [Aspirin EC] 81 mg PO DAILY #30 tablet. 08/09/18 Lisinopril [Zestril] 10 mg PO DAILY 30 Days #30 tablet 08/15/18 Allergies Allergy/AdvReac Type Severity Reaction Status Date / Time No Known Allergies Allergy Verified 08/08/18 09:52 Review of Systems: Constitutional: No fever Vision: No blurred vision ENT: No rhinorrhea Respiratory: No cough Allergic: No allergies : No blood in urine GI: No blood in stool Hematologic: No bruising Dermatologic: No skin rash Musculoskeletal: No pain in the extremities Neuro: + numbness of the extremities Past Medical History - Past Medical History Medical history: Reports: asthma, diabetes, GERD, hyperlipidemia, hypertension, other Surgical history: Reports: herniorrhaphy Psychiatric history: Reports: no psych history - Social History Smoking Status: Current every day smoker Smokeless Tobacco Status: No Alcohol use: Reports: none Drug use: Reports: none Physical Exam CONSTITUTIONAL: Well-appearing; well-nourished; A&O X3, in no apparent distress HEAD: Normocephalic; atraumatic. EYES: PERRL, EOMI, no scleral icterus NOSE: The nose is normal in appearance without rhinorrhea NECK: Supple without rigidity, no RAPHAEL RESP: Normal chest excursion with respiration; breath sounds clear and equal bilaterally; no wheezes, rhonchi, or rales CARD: Regular rhythm, without murmurs, rub or gallop ABD: Non-distended; non-tender, soft, without rigidity, rebound or guarding SKIN: Normal for age and race; warm and dry; no apparent lesions, no rash NEUROLOGICAL: Patient is alert and oriented times three. Cranial nerves III- XII are intact. Sensory and motor functions are intact. Strength is 5/5 for flexion and extension in all 4 extremities. Finger to nose testing is equal and normal bilaterally. stroke scale is 0 - General Limitations: no limitations General appearance: alert Course Vital Signs Temperature 97.7 F 08/29/18 10:22 Pulse Rate 54 08/29/18 10:22 Respiratory Rate 14 08/29/18 10:22 Blood Pressure 172/77 08/29/18 10:22 O2 Sat by Pulse Oximetry 100 08/29/18 10:22 Temperature 97.7 F 08/29/18 10:22 Pulse Rate 54 08/29/18 10:22 Respiratory Rate 14 08/29/18 10:22 Blood Pressure 172/77 08/29/18 10:22 O2 Sat by Pulse Oximetry 100 08/29/18 10:22 Oxygen Delivery Oxygen Delivery Room Air Medical Decision Making - MDM Narrative Medical decision making narrative: Patient's symptoms are concerning for TIA. Patient is not significantly bradycardic. 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 I did speak with the hospitalist accepts the patient for admission. The patient is asymptomatic at this time. He is not a thrombolytic candidate due to her stroke score of 0 and no symptoms at this time. I did review the patient's labs. He will be admitted for observation. 1204 I did go back and reassessed the patient and the heart rate is currently 59 bpm. He is not symptomatic. says his heart rate did decrease to 45 bpm and one point in the ED but he was not symptomatic during this time. I did discuss further with the hospitalist who asked that I place a consult in the computer for both neurology and cardiology which I will do 1230 - Medical Records Medical records reviewed: Yes I reviewed the patient's medical records. - Lab Data Lab results reviewed: Yes I reviewed the patient's lab results. Result diagrams: 08/29/18 11:03 08/29/18 11:03 Lab Results 08/29/18 08/29/18 Range/Units 11:03 11:03 WBC 15.3 H (4.3-11.1) K/mcL RBC 5.20 (4.19-5.50) M/mcL Hgb 15.5 (12.9-16.9) g/dL Hct 47.5 (37.5-50.1) % MCV 91.3 (83.0-100.0) fL MCH 29.8 (28.0-33.3) pg MCHC 32.6 (31.6-35.5) g/dL RDW 14.1 (11.5-14.5) % Plt Count 185 (140-400) K/mcL MPV 13.4 H (9.4-12.4) fL Sodium 139 (136-145) mEq/L Potassium 3.9 (3.5-5.1) mEq/L Chloride 109 H (98-107) mEq/L Carbon Dioxide 24 (23-29) mEq/L BUN 14 (8-23) mg/dL Creatinine 0.92 (0.70-1.30) mg/dL Est GFR ( Amer) > 60 (> 60) Est GFR (Non-Af Amer) > 60 (> 60) BUN/Creatinine Ratio 15 (6-26) Glucose 120 H (70-105) mg/dL Calculated Osmolality 290 (280-300) Calcium 9.2 (8.6-10.3) mg/dL Troponin I < 0.03 (< 0.04) ng/mL - Radiology Data Radiology results reviewed: Yes I reviewed the patient's radiology results. NIH Stroke Scale - Level of Consciousness LOC: Alert - LOC Questions LOC Questions: Answers both correctly - LOC Commands LOC Commands: Performs both correctly - Best Gaze Best Gaze: Normal - Visual Visual: No visual loss - Facial Palsy Facial Palsy: Normal - Motor Arms Motor Arm-Left: No drift for 10 seconds Motor Arm-Right: No drift for 10 seconds - Motor Legs Motor Leg-Left: No drift for 5 seconds Motor Leg-Right: No drift for 5 seconds - Limb Ataxia Limb Ataxia: Normal, No Ataxia - Sensory Sensory: Normal - Best Language Best Language: No aphasia - Dysarthria Dysarthria: Normal - Extinction and Inattention Extinction and Inattention: Normal - NIHSS Total Score NIHSS Total Score: 0
[2018-08-29 11:13] LABS: Hematocrit 47.5 % (37.5-50.1); Hemoglobin 15.5 g/dL (12.9-16.9); Mean Corpuscular HGB Conc 32.6 g/dL (31.6-35.5); Mean Corpuscular Hemoglobin 29.8 pg (28.0-33.3); Mean Corpuscular Volume 91.3 fL (83.0-100.0); Mean Platelet Volume 13.4 fL (9.4-12.4); Platelet Count 185 K/mcL (140-400); Red Cell Distribution Width 14.1 % (11.5-14.5)
[2018-08-29 11:31] LABS: BUN/Creatinine Ratio 15 (6-26); Blood Urea Nitrogen 14 mg/dL (8-23); Calcium 9.2 mg/dL (8.6-10.3); Carbon Dioxide 24 mEq/L (23-29); Chloride 109 mEq/L (98-107); Glucose 120 mg/dL (70-105); Osmolality,Calculated 290 (280-300); Potassium 3.9 mEq/L (3.5-5.1); Sodium 139 mEq/L (136-145); Troponin I < 0.03 ng/mL (< 0.04); eGFR For Non-African Americans > 60 (> 60)
--- NOTE | 2018-08-29 13:19 | Neurology - Consult Note ---
<Daniel Ulloa - Last Filed: 08/29/18 15:29> Date of Encounter: 08/29/18 Time of Encounter: 13:18 Assessment and Plan (1) Stroke-like symptoms Current Visit: Yes Status: Acute Patient woke up feeling diaphoretic this morning with associated numbness of the left face/ scalp, left arm, and left leg weakness. Symptoms lasted about one hour than resolved spontaneously. CT brain revealed no acute intracranial abnormality with prominent perivascular spaces in the white matter of the left cerebral hemisphere, and stable prominent perivascular space versus small old lacunar infarct in the right middle cerebellar peduncle. MRI brain on 08/09/18 revealed no acute infarction with sequela of mild chronic microvascular ischemic changes and prominent perivascular spaces in the left frontal and left parietal lobe. Carotid doppler on 08/09/18 revealed non-stenotic plaques bilaterally. Echo revealed LVEF 55-60%, mild LV diastolic dysfunction, and mild-moderate pulmonary hypertension. Resume home Aspirin and statin CTA head and neck ordered (2) Bradycardia Current Visit: Yes Status: Chronic Symptomatic bradycardia Continue Holter monitoring Cardiology consulted (3) HTN (hypertension) Current Visit: No Status: Chronic Resume home meds Qualifiers: Hypertension type: essential hypertension Qualified Code(s): I10 - Essential (primary) hypertension (4) HLD (hyperlipidemia) Current Visit: No Status: Chronic Lipid panel on 10/21/17 revealed triglyceride level 176, total cholesterol 146, LDL 87, HDL 24 Resume home statin Qualifiers: Hyperlipidemia type: unspecified Qualified Code(s): E78.5 - Hyperlipidemia, unspecified (5) DMII (diabetes mellitus, type 2) Current Visit: No Status: Chronic Qualifiers: Diabetes mellitus half-way insulin use: unspecified half-way insulin use status Diabetes mellitus complication status: with unspecified complications Qualified Code(s): E11.8 - Type 2 diabetes mellitus with unspecified complications (6) TIA (transient ischemic attack) Current Visit: No Status: Resolved Patient has history of TIA in the past. No residual deficits. Continue current therapy. (7) Tobacco dependence Current Visit: Yes Status: Chronic Tobacco cessation discussed (8) Status post reverse total replacement of right shoulder Current Visit: No Status: Chronic Recent left reverse total shoulder on 06/10/18 Outpatient monitoring History of Present Illness Chief complaint: Syncope HPI: Mr. Shah is a 72 year old male with a PMH of bradycardia, TIA, HTN, HLD, DM, DVT, vitamin V12 deficiency, and tobacco dependence who presented to the ED after a medical assist was called overhead after he came to warp picker his Holter monitor today. Patient woke up feeling diaphoretic this morning with associated dizziness, vomiting x2, numbness of his left face/ scalp, left arm, and weakness in his left leg. Patient denied numbness of the leg, other extremity weakness, slurred speech, facial droop, confusion, or chest pain. Symptoms lasted about one hour than resolved spontaneously by the time EMS arrived to his house. He called his mold breaker and was instructed to come in today to receive his Holter monitor one day earlier than previously scheduled due to his current sy mptoms. Symptoms reoccurred one he arrived to the hospital today. Of note, patient was hospitalized for symptomatic bradycardia twice this month with recent brain MRI and CT scans, carotid Doppler, echocardiogram, and nuclear stress test. Neurology was consulted for further recommendations. Past Med Surg Social Fam HX - Past Medical History Medical history: asthma, diabetes, GERD, hyperlipidemia, hypertension, other Additional medical history: diverticulitis, decreased urine stream Psychiatric history: no psych history - Past Surgical History Surgical History: herniorrhaphy Additional surgical history: partial CHOLECTOMY for diverticulitis 1983. SKIN BIOPSY 2002. Dental Extractions. Umbilical hernia repair 04/30/12. Right Total Shoulder Replacment Reverse, biceps tenodesis 03/26/17. left reverse total shoulder 06/10/18 - Social History Smoking Status: Current every day smoker Smokeless Tobacco Status: No Alcohol use: none Drug use: none - Family History Mother Hx Family Cardiac Disorders: Yes Father Hx Family Cardiac Disorders: Yes (tia) Medications and Allergies Albuterol Sulfate [Proair Hfa] 2 puff IH Q4H PRN 06/10/18 [History] Atorvastatin [Lipitor] 40 mg PO DAILY 06/10/18 [History] Cyanocobalamin (Vitamin B-12) [Vitamin B12] 1,000 mcg PO MOWEFR 06/10/18 [History] Omeprazole [PriLOSEC] 40 mg PO DAILY 06/10/18 [History] Sildenafil Citrate [Viagra] 100 mg PO DAILY PRN 06/10/18 [History] Naproxen Sodium [Aleve] 220 mg PO BID PRN 08/08/18 [History] Aspirin Enteric Coated [Aspirin EC] 81 mg PO DAILY #30 tablet. 08/09/18 [Rx] Lisinopril [Zestril] 10 mg PO DAILY 30 Days #30 tablet 08/15/18 [Rx] Allergy/AdvReac Type Severity Reaction Status Date / Time No Known Allergies Allergy Verified 08/08/18 09:52 All Systems: The remainder of the systems were reviewed and are negative - Constitutional Constitutional ROS IM: weakness, no chills, no fatigue, no fever(s), no headache(s), no lethargy - Nose, Mouth, Throat Nose, mouth and throat: dizziness - Cardiovascular Cardiovascular ROS IM: no chest pain, no palpitations - Respiratory Respiratory IM: no cough, no dyspnea - Gastrointestinal Gastrointestinal: nausea, vomiting, no abdominal pain - Genitourinary Genitourinary ROS: no urinary frequency, no urinary urgency - Musculoskeletal Musculoskeletal ROS IM: abnormal gait, numbness, tingling, no back pain, no muscle weakness, no neck pain - Integumentary Integumentary IM: no new lesions, no rash - Neurological Neurological ROS: abnormal gait, dizziness, focal weakness, numbness, paresthesias, tingling, weakness, no confusion, no loss of vision, no memory loss, no syncope, no other visual disturbances - Psychiatric Psychiatric general PM: no anxiety, no confusion Physical Examination - Vital Signs Vital Signs: Initial Vital Signs Temp Pulse Resp BP Pulse Ox 97.7 F 54 14 172/77 100 08/29/18 10:22 08/29/18 10:22 08/29/18 10:22 08/29/18 10:22 08/29/18 10:22 - Constitutional General appearance: comfortable - Neurologic Sensorimotor examination: intact Detailed motor examination: grossly full strength in all extremities, full strength in all major muscle groups Motor examination - right side: 5/5: deltoids, biceps, triceps, basket turner, hip flexors, tibialis Anterior, quadriceps, toe extension (EHL), plantarflexion Motor examination - left side: 5/5: deltoids, biceps, triceps, hip flexors, basket turner, quadriceps, tibialis Anterior, toe extension (EHL), plantarflexion Detailed sensory examination: intact, light touch Reflex and gait examination: normal gait Reflexes: Biceps: 2+, Triceps: 2+, Brachioradialis: 2+, Patella: 2+, Achilles: 2+ Mental Status Examination: awake, alert, oriented to person, oriented to place, oriented to time, follows commands appropriately, answers questions appropriately, no agnosia, no aphasia, no aproxia Cranial nerve examination: PERRL, EOMI, visual alfonso intact, sensory to face intact, mastication intact, no facial asymmetry is present, no dysarthria, flexes SCM and trapezius muscles symmetrically with full power, tongue protrudes midline, no atrophy or facial fasiculations present Cerebellar examination: no dysmetria, performs finger to nose and heel to pelayo symmetrically without ataxia, no gait ataxia, no difficulty with rapid altern ating movements Results - Laboratory Findings CBC and BMP: 08/29/18 11:03 08/29/18 11:03 Abnormal lab findings: Abnormal lab results WBC 15.3 K/mcL (4.3-11.1) H 08/29/18 11:03 MPV 13.4 fL (9.4-12.4) H 08/29/18 11:03 Chloride 109 mEq/L (98-107) H 08/29/18 11:03 Glucose 120 mg/dL (70-105) H 08/29/18 11:03 - Diagnostic Findings Additional findings: ITS Impressions Head CT 08/29/18 10:51 IMPRESSION: No acute intracranial abnormality. Prominent perivascular spaces in the white matter of the left cerebral hemisphere, stable and does not require follow-up. Stable prominent perivascular space versus small old lacunar infarct in the right middle cerebellar peduncle. Minimal parenchymal volume loss. Minimal chronic microvascular disease. D/ / Max Parrish MD / Max Parrish MD Interpreting Provider: Max Parrish MD Consult Discharge Plan - Plan Referrals: Sudhakar Cortez DO [Primary Care Provider] - <Randy Calle - Last Filed: 08/29/18 18:17> Date of Encounter: 08/29/18 Time of Encounter: 18:11 Assessment and Plan (1) Bradycardia Current Visit: Yes Status: Chronic I agree that we are more than likely dealing with symptomatic bradycardia or perhaps secondary to primary bradycardia versus a vasovagal event. During the event she did experience diaphoresis, weakness dizziness as well as nausea. He felt lightheaded however he did not lose consciousness. He is been known to have a heart rate into the low 40s. He gives explicit details of this phenomenon which has occurred 3 times. I therefore do not feel we are dealing with seizure, and the MRI does not reveal evidence of an acute cerebral infarct. I agree with cardiac monitoring and cardiac consultation. I will reevaluate him at your request. History of Present Illness HPI: The chart was reviewed, the patient was seen and examined along with the resident. I agree with the resident's assessment as stated above. I would also like to add that I did personally review the MRI scan of his brain completed about 2 weeks ago as well as the CTA scans of the brain and neck completed today. All Systems: The remainder of the systems were reviewed and are negative Review of Systems: The balance of the systems review is negative. Physical Examination - Vital Signs Vital Signs: Initial Vital Signs Temp Pulse Resp BP Pulse Ox 97.7 F 54 14 172/77 100 08/29/18 10:22 08/29/18 10:22 08/29/18 10:22 08/29/18 10:22 08/29/18 10:22 - Neurologic Detailed motor examination: full strength in all major muscle groups Motor examination - right side: 5/5: deltoids, biceps, triceps, wrist flexion, wrist extension, basket turner, hip flexors, tibialis Anterior, quadriceps, toe extension (EHL), plantarflexion Motor examination - left side: 5/5: deltoids, biceps, triceps, wrist flexion, wrist extension, hip flexors, basket turner, quadriceps, tibialis Anterior, toe extension (EHL), plantarflexion Mental Status Examination: awake, alert, oriented to person, oriented to place, oriented to time, follows commands appropriately, answers questions appropriately, no agnosia, no aphasia, no aproxia Cranial nerve examination: PERRL, EOMI, visual alfonso intact, corneal reflexes brisk symmetrically, sensory to face intact, mastication intact, no facial asymmetry is present, no dysarthria, hearing is intact symmetrically, soft palate elevates bilaterally upon phonation, gag reflex intact, flexes SCM and trapezius muscles symmetrically with full power, tongue protrudes midline, no atrophy or facial fasiculations present Cerebellar examination: no dysmetria, performs finger to nose and heel to pelayo symmetrically without ataxia, no gait ataxia, no truncal ataxia, no difficulty with rapid alternating movements Results - Laboratory Findings CBC and BMP: 08/29/18 11:03 08/29/18 11:03 Abnormal lab findings: Abnormal lab results WBC 15.3 K/mcL (4.3-11.1) H 08/29/18 11:03 MPV 13.4 fL (9.4-12.4) H 08/29/18 11:03 Chloride 109 mEq/L (98-107) H 08/29/18 11:03 Glucose 120 mg/dL (70-105) H 08/29/18 11:03
[2018-08-29] MEDS ORDERED: Isovue-370 500 ML INFUS..BTL IV ONE (15:24)
[2018-08-29] MEDS ORDERED: NON-FORMULARY MEDICATION 1 EACH EACH (Sildenafil Citrate [Viagra] 100 MG) PO PRN (15:46)
[2018-08-29] MEDS ORDERED: Naloxone 0.4 MG/ML INJ IVP PRN (15:48)
--- NOTE | 2018-08-29 15:56 | Internal Med History&Physical ---
Date of Encounter: 08/29/18 Time of Encounter: 15:53 Internal Medicine - H&P: HPI Chief complaint: Left face, scalp, arm and leg paresthesias Admitted From: Home Plans for Post Hospital Care: Home History of present illness: Mr. Shah is a 72 year old male with a PMH of asthma, diabetes, GERD, hyperlipidemia and hypertension who presents to [facility] ED with concerns for left facial, left scalp, left arm, left leg paresthesias and diaphoresis which lasted approximately one hour in total. He reports that this occurred at approximately 9 AM this morning. He has had recent admissions and workup for the same. Prior workup included CT head, and MRI of brain which was without acute process, additionally, bilateral carotid Dopplers were without flow-limiting stenosis, TSH and B12 all found to be unremarkable. His reports that she called emergency services but that the patient's symptoms resolved while EMS was in the home so he declined transfer to the ED at that time. The patient was scheduled today to have a Holter monitor placed for evaluation of symptomatic hanh arrhythmias. While at the cardiology office his left sided paresthesias returned. He was sent from cardiology office to the ED for further evaluation. While in the ED he had a CT of the head which was found to be negative for acute intracranial abnormality. He was found to have an elevated WBC of unclear etiology. A urinalysis was obtained. The patient denies fevers, chills, flulike s/sx, ill contacts, urinary symptoms, slurred speech, vision changes, headache, facial droop, confusion, ataxia, gait changes, and disequilibrium. He reports that his symptoms have again subsided. However given his recurrence of symptoms he is being admitted for further evaluation. We will consult neurology and obtain CT of head and neck. Cardiology will also be consulted to assist with management. He will be admitted to observation status. Past Med Surg Social Fam HX - Past Medical History Medical history: asthma, diabetes, GERD, hyperlipidemia, hypertension, other Additional medical history: diverticulitis, decreased urine stream Psychiatric history: no psych history - Past Surgical History Surgical History: herniorrhaphy Additional surgical history: partial CHOLECTOMY for diverticulitis 1983. SKIN BIOPSY 2002. Dental Extractions. Umbilical hernia repair 04/30/12. Right Total Shoulder Replacment Reverse, biceps tenodesis 03/26/17. left reverse total shoulder 06/10/18 - Social History Smoking Status: Current every day smoker Packs per day: 0.5 Smokeless Tobacco Status: No Alcohol use: none Drug use: none - Family History Mother Living Status: Hx Family Cardiac Disorders: Yes Father Living Status: Hx Family Cardiac Disorders: Yes (tia) Hx Family Neuromuscular Disorders: Yes (aneurysm) Internal Medicine - H&P: Meds Albuterol Sulfate [Proair Hfa] 2 puff IH Q4H PRN 06/10/18 [History] Atorvastatin [Lipitor] 40 mg PO DAILY 06/10/18 [History] Cyanocobalamin (Vitamin B-12) [Vitamin B12] 1,000 mcg PO MOWEFR 06/10/18 [History] Omeprazole [PriLOSEC] 40 mg PO DAILY 06/10/18 [History] Sildenafil Citrate [Viagra] 100 mg PO DAILY PRN 06/10/18 [History] Naproxen Sodium [Aleve] 220 mg PO BID PRN 08/08/18 [History] Aspirin Enteric Coated [Aspirin EC] 81 mg PO DAILY #30 tablet. 08/09/18 [Rx] Lisinopril [Zestril] 10 mg PO DAILY 30 Days #30 tablet 08/15/18 [Rx] Allergy/AdvReac Type Severity Reaction Status Date / Time No Known Allergies Allergy Verified 08/08/18 09:52 All Systems PM: A 10-system review of systems was performed and is negative for pertinent findings except as documented above in the HPI. - Constitutional Constitutional: no chills, no fever(s), no night sweats - EENT Eyes: no change in vision, no discharge, no pain, no photophobia Ears: no ear discharge, no ear pain, no tinnitus Nose, mouth and throat: no dysphagia, no nasal discharge, no neck pain, no sore throat - Cardiovascular Cardiovascular ROS IM: lightheadedness, palpitations, no chest pain, no diaphoresis, no dyspnea, no syncope - Respiratory Respiratory: no cough, no dyspnea, no wheezing, no excessive phlegm production - Gastrointestinal Gastrointestinal: no abdominal pain, no diarrhea, no hematemesis, no hematochezia, no melena, no nausea, no vomiting - Musculoskeletal Musculoskeletal ROS IM: no numbness, no tingling - Integumentary Integumentary IM: no rash, no unusual bruising - Neurological Neurological ROS: as per HPI, numbness, tingling, no confusion, no convulsions, no focal weakness, no tremor(s) - Hematologic/Lymphatic Hematologic/Lymphatic: no easy bruising - Constitutional Vitals: Temp Pulse Resp BP Pulse Ox 97.7 F 56 16 160/87 16 08/29/18 13:54 08/29/18 13:54 08/29/18 13:54 08/29/18 13:54 08/29/18 13:54 General appearance: Present: A&O X 3 Exam: see exam - Head Head exam: Present: atraumatic, normocephalic - Eye Eye exam: Present: PERRL, conjuntiva pink, sclera anicteric Pupils: Present: PERRL - Neck Neck exam general surgery: Present: supple, trachea midline. Absent: lymphadenopathy - Respiratory Respiratory exam: Present: CTAB. Absent: accessory muscle use, rales, rhonchi, wheezes - Cardiovascular Cardiovascular exam: Present: RRR, +S1, +S2. Absent: diastolic murmur, gallop, rubs, systolic murmur - GI/Abdominal GI/Abdominal exam: Present: normal bowel sounds, soft, no peritoneal signs. Absent: distended, tenderness - Extremities Exam Extremities exam: Present: warm, radial pulses palpable and symmetrical. Absent: calf tenderness, cyanotic, pedal edema - Neurological Exam Neurological exam: Present: alert, oriented X3, no focal deficits. Absent: pronater drift, facial droop, speech deficit - Skin Skin exam: Present: dry, intact Internal Med - H&P Results - Labs CBC & Chem 7: 08/29/18 11:03 08/29/18 11:03 Labs: Short CBC 08/29/18 Range/Units 11:03 WBC 15.3 H (4.3-11.1) K/mcL Hgb 15.5 (12.9-16.9) g/dL Hct 47.5 (37.5-50.1) % Plt Count 185 (140-400) K/mcL BMP 08/29/18 11:03 Sodium 139 Potassium 3.9 Chloride 109 H Carbon Dioxide 24 BUN 14 Creatinine 0.92 Glucose 120 H Calcium 9.2 Cardiac Enzymes 08/29/18 Range/Units 11:03 Troponin I < 0.03 (< 0.04) ng/mL - EKG Data -: EKG Interpreted by Myself - Impressions ITS Impressions Head CT 08/29/18 10:51 IMPRESSION: No acute intracranial abnormality. Prominent perivascular spaces in the white matter of the left cerebral hemisphere, stable and does not require follow-up. Stable prominent perivascular space versus small old lacunar infarct in the right middle cerebellar peduncle. Minimal parenchymal volume loss. Minimal chronic microvascular disease. D/ / Max Parrish MD / Max Parrish MD Interpreting Provider: Max Parrish MD - Assessment and plan (1) Stroke-like symptoms Current Visit: Yes Status: Acute Assessment and plan: Patient reports that around 9 AM this morning he began to feel diaphoretic and have left face/scalp, left arm and left lower leg paresthesias He has had multiple recent admissions for the same He denies any vision changes, dizziness, gait changes, chest pain, shortness of breath Recent MRI 08/09/18 revealing no acute infarct; showing sequela of mild chronic microvascular ischemic changes and prominent perivascular spaces Left frontal and left occipital lobe Carotid Doppler on 08/09/18 revealing nonstenotic plaques bilaterally TSH 08/13/18 wnl, B12 08/21/18 WNL Echo revealed LVEF 55-60%, mild LV diastolic dysfunction, and mild-moderate pulmonary hypertension CT of head in the ED today reveals no acute intracranial abnormality with prominent perivascular space in the white matter of the left cerebral hemisphere and stable prominent perivascular space versus small old lacunar infarct in the right middle cerebral peduncle He reports that all symptoms lasted approximately one hour and that all symptoms have resolved CTA head and neck obtained this evening without evidence for hemodynamically significant arterial stenosis Nephrology following in consultation; thank you, I appreciate your recommendations Continue aspirin, statin At this time is unclear the etiology of recurrent paresthesias He does have a history of TIAs without residual deficits (2) Paresthesias/numbness Current Visit: Yes Status: Acute Assessment and plan: As above (3) Bradycardia Current Visit: Yes Status: Acute Assessment and plan: Persistent symptomatic bradycardia We will need Holter monitor prior to discharge Cardiology seen in consultation Continue cardiac monitoring Avoid AV usha blockers (4) DMII (diabetes mellitus, type 2) Current Visit: No Status: Chronic Assessment and plan: LSSIC AC/HS FSBG Diabetic diet Qualifiers: Diabetes mellitus logging assistant insulin use: unspecified logging assistant insulin use status Diabetes mellitus complication status: with unspecified complications Qualified Code(s): E11.8 - Type 2 diabetes mellitus with unspecified complications (5) HLD (hyperlipidemia) Current Visit: No Status: Chronic Assessment and plan: continue lipitor Qualifiers: Hyperlipidemia type: unspecified Qualified Code(s): E78.5 - Hyperlipidemia, unspecified (6) HTN (hypertension) Current Visit: No Status: Chronic Assessment and plan: h/o HTN BP elevated in ED SBP 170's Continues to be elevated this afternoon Resume home anti-HTN meds and monitor PRN hydralazine for SBP greater than 160 Qualifiers: Hypertension type: essential hypertension Qualified Code(s): I10 - Essential (primary) hypertension (7) TIA (transient ischemic attack) Current Visit: No Status: Resolved Assessment and plan: h/o TIA, no residual deficits neuro exam remains non-focal (8) Tobacco dependence Current Visit: Yes Status: Chronic Assessment and plan: strongly encouraged smoking cessation (9) Status post reverse total replacement of right shoulder Current Visit: No Status: Chronic Assessment and plan: total reverse shoulder on 06/18 continue outpatient f/u - Time Spent With Patient Total time spent is greater than 50% in coordination of care (as documented) at patient's floor/unit and/or counseling patient: less than 15 minutes
[2018-08-29] MEDS ORDERED: Dextrose Gel 15 GM/37.5 ML TUBE PO PRN ×2 (17:28)
[2018-08-29] MEDS ORDERED: *HR* Dextrose 50 % in Water (Syg) 50 ML SYRINGE IVP PRN (17:28)
[2018-08-29] MEDS ORDERED: D5% in Water 1,000 ML IVC PRN (17:28)
[2018-08-29 18:38] LABS: Bilirubin,Urine Negative (Negative); Blood,Urine Negative (Negative); Clarity,Urine Clear (Clear); Color,Urine Yellow (Yellow); Glucose,Urine (UA) Normal (Normal); Ketones,Urine Negative (Negative); Leukocyte Esterase,Urine Negative (Negative); Nitrite,Urine Negative (Negative); Protein,Urine Negative (Neg-Trace); Specific Gravity,Urine > 1.030 (1.010-1.025); Urobilinogen,Urine Normal (Normal)
[2018-08-29] MEDS ORDERED: Insulin LISPRO 300 UNITS/3 ML VIAL SQ SCH (21:00)
[2018-08-30 03:48] LABS: Basophils # 0.1 K/mcL (0.0-0.2); Basophils % 0.6 %; Eosinophils # 0.6 K/mcL (0.0-0.6); Eosinophils % 4.3 %; Hematocrit 42.6 % (37.5-50.1); Immature Platelets 16.9 % (1.1-6.1); Lymphocytes # 4.8 K/mcL (0.6-4.6); Lymphocytes % 35.7 %; Mean Corpuscular HGB Conc 32.6 g/dL (31.6-35.5); Mean Corpuscular Hemoglobin 29.8 pg (28.0-33.3); Mean Corpuscular Volume 91.2 fL (83.0-100.0); Monocytes % 7.6 %; Neutrophils # 6.8 K/mcL (1.6-8.9); Platelet Count 187 K/mcL (140-400); Red Blood Count 4.67 M/mcL (4.19-5.50); Red Cell Distribution Width 14.4 % (11.5-14.5); Segmented Neutrophils % 50.8 %
[2018-08-30 03:50] LABS: Hemoglobin 13.9 g/dL (12.9-16.9)
[2018-08-30 04:00] LABS: BUN/Creatinine Ratio 18 (6-26); Blood Urea Nitrogen 17 mg/dL (8-23); Calcium 8.7 mg/dL (8.6-10.3); Carbon Dioxide 25 mEq/L (23-29); Chloride 110 mEq/L (98-107); Glucose 113 mg/dL (70-105); Osmolality,Calculated 290 (280-300); Sodium 139 mEq/L (136-145); eGFR For Non-African Americans > 60 (> 60)
--- NOTE | 2018-08-30 05:57 | Electrocardiograph Report ---
[facility] Test Date: 2018-08-29 Pat Name: Josep Shah Department: EXAM11 Room: 3B47 Gender: M Accounting Reconciliation Clerk: : 1945 Requested By: Randy Mark Order Number: [id number] Reading MD: Adrian Mejia Measurements Intervals [place] Rate: 78 P: 76 DE: 129 QRS: 78 QRSD: 83 T: 14 QT: 346 QTc: 395 Interpretive Statements Sinus rhythm Electronically Signed On 08-30-2018 5:56:01 EST by Adrian Mejia
--- NOTE | 2018-08-30 05:57 | Electrocardiograph Report ---
[facility] Test Date: 2018-08-29 Pat Name: Josep Shah Department: EXAM7 Room: 3B47 Gender: M Bowling Pin Refinisher: : 1945 Requested By: Randy Mark Order Number: [id number] Reading MD: Adrian Mejia Measurements Intervals [place] Rate: 50 P: 47 CA: 174 QRS: -27 QRSD: 109 T: 54 QT: 442 QTc: 403 Interpretive Statements Sinus rhythm Electronically Signed On 08-30-2018 5:55:53 EST by Adrian Mejia
--- NOTE | 2018-08-30 08:42 | Event Note ---
Date of Encounter: 08/30/18 Time of Encounter: 08:40 - Cardiology Event Note Discussed patient care with Mark Campuzano CNP. Pt recently evaluated by cardiology for pre-syncope with negative work-up. Holter monitor was ordered in out pt setting. Ok to place holter monitor prior to d/c as ordered. Pt has f/u with PCP and pending f/u with cardiology. Please call with questions.
[2018-08-30] MEDS ORDERED: Aspirin Enteric Coated 81 MG Tablet PO SCH (09:00)
[2018-08-30] MEDS: Insulin LISPRO 300 UNITS/3 ML VIAL SQ SCH ×2 (09:58→13:47)
[2018-08-30 12:26] VITALS: BP 157/78
--- NOTE | 2018-08-30 14:09 | Discharge Summary ---
- NOTES TO OUTPATIENT PROVIDER Notes to Outpatient Provider: Event monitor placed prior to D/C please f/u on results Orders not resulted at time of discharge: Pending orders 08/31/18 04:00 Basic Metabolic Panel AM 0400 Complete Blood Count [HEME] AM 0400 Date of Encounter: 08/30/18 Time of Encounter: 14:02 - Discharge Diagnosis (1) Stroke-like symptoms Priority: Primary Status: Resolved (2) Paresthesias/numbness Priority: Secondary Status: Resolved (3) Bradycardia Priority: Secondary Status: Chronic (4) DMII (diabetes mellitus, type 2) Priority: Secondary Status: Chronic Qualifiers: Diabetes mellitus manager long term care insulin use: unspecified detention insulin use status Diabetes mellitus complication status: with unspecified complications Qualified Code(s): E11.8 - Type 2 diabetes mellitus with unspecified complications (5) HLD (hyperlipidemia) Priority: Secondary Status: Chronic Qualifiers: Hyperlipidemia type: unspecified Qualified Code(s): E78.5 - Hyperlipidemia, unspecified (6) HTN (hypertension) Priority: Secondary Status: Chronic Qualifiers: Hypertension type: essential hypertension Qualified Code(s): I10 - Essential (primary) hypertension (7) TIA (transient ischemic attack) Priority: Secondary Status: Resolved (8) Tobacco dependence Priority: Secondary Status: Chronic (9) 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 Shah is a 72 year old male with a PMH of asthma, diabetes, GERD, hyperlipidemia and hypertension who presents to [facility] with concerns for left facial, left scalp, left arm, left leg paresthesias and diaphoresis which lasted approximately one hour in total. He had 2 episodes in total of these paresthesias symptoms on 08/29/18. He has had multiple recent admissions for t he same with a thorough neurologic workup including negative CT imaging of head, negative CTA head and neck, negative MRI brain, negative carotid Dopplers. Additionally, he is a thorough cardiac workup was as far as found to be unremarkable. Yesterday he was in hat measurer's office to have event monitor placement symptoms began. During the last admission and was found to have symptomatic bradycardia. Neurology consulted throughout the stay and agree with cardiac monitoring and cardiac consultation. Cardiology consultation recommended event monitor placement prior to discharge with outpatient monitoring of follow-up with cardiology. Additionally, patient is instructed to follow-up with PCP upon discharge. It should be noted that his symptoms resolved while in the ED and he has had no return of symptoms since admission this includes no return of symptomatic bradycardia. Discharge discussed with: patient, nurse, senior solutions consultant Time spent discussing smoking cessation with patient: 3 to 10 minutes - Time Spent with Patient Total time spent providing and/or coordinating discharge services: Less than 30 minutes - Discharge Medications Prescriptions: Lisinopril [Zestril] 10 mg PO HS 30 Days #30 tablet Lisinopril [Zestril] 15 mg PO DAILY 30 Days #45 tablet Home Medications: Albuterol Sulfate [Proair Hfa] 2 puff IH Q4H PRN 06/10/18 [History] Atorvastatin [Lipitor] 40 mg PO DAILY 06/10/18 [History] Cyanocobalamin (Vitamin B-12) [Vitamin B12] 1,000 mcg PO MOWEFR 06/10/18 [History] Omeprazole [PriLOSEC] 40 mg PO DAILY 06/10/18 [History] Sildenafil Citrate [Viagra] 100 mg PO DAILY PRN 06/10/18 [History] Naproxen Sodium [Aleve] 220 mg PO BID PRN 08/08/18 [History] Aspirin Enteric Coated [Aspirin EC] 81 mg PO DAILY #30 tablet. 08/09/18 [Rx] Lisinopril [Zestril] 10 mg PO HS 30 Days #30 tablet 08/30/18 [Rx] Lisinopril [Zestril] 15 mg PO DAILY 30 Days #45 tablet 08/30/18 [Rx] Allergies/Adverse Reactions: Allergy/AdvReac Type Severity Reaction Status Date / Time No Known Allergies Allergy Verified 08/08/18 09:52 Date of admission: 08/29/18 12:13 Primary care physician: Sudhakar Cortez DO Consults: 08/29/18 12:32 Consult to Neurology [CONS] Routine Consulting Provider: [facility] Reason for Consult: tia Call Completed: No 08/29/18 12:33 Consult to Cardiology [CONS] Routine Comment: Consulting Provider: [facility] Reason for Consult: tia, bradycardia Call Completed: No Discharging clinician: Mark Campuzano Anticipated date of discharge: 08/30/18 - Constitutional Vitals: Temp Pulse Resp BP Pulse Ox 98.3 F 69 16 157/78 93 08/30/18 12:21 08/30/18 12:21 08/30/18 12:21 08/30/18 12:21 08/30/18 12:21 General appearance: Present: A&O X 3 Exam: see exam - Head Head exam: Present: atraumatic, normocephalic - Eye Eye exam: Present: PERRL, conjuntiva pink, sclera anicteric Pupils: Present: PERRL - Neck Neck exam general surgery: Present: supple, trachea midline. Absent: lymphadenopathy - Respiratory Respiratory exam: Present: CTAB. Absent: accessory muscle use, rales, rhonchi, wheezes - Cardiovascular Cardiovascular exam: Present: RRR, +S1, +S2. Absent: diastolic murmur, gallop, rubs, systolic murmur - GI/Abdominal GI/Abdominal exam: Present: normal bowel sounds, soft, no peritoneal signs. Absent: distended, tenderness - Extremities Exam Extremities exam: Present: warm, radial pulses palpable and symmetrical. Absent: calf tenderness, cyanotic, pedal edema - Neurological Exam Neurological exam: Present: CN II-XII intact, oriented X3, no focal deficits. Absent: pronater drift, facial droop, speech deficit - Skin Skin exam: Present: dry, intact - Patient Status Disposition: Home, Self-Care Condition: Fair Overall status at discharge: patient is progressing back to baseline - Discharge Instructions Follow Up With: Sudhakar Cortez DO [Primary Care Provider] - 09/04/18 1:00 pm
[2018-08-30] MEDS ORDERED: Cyanocobalamin (B-12) 1,000 MCG TABLET PO SCH (15:46)
--- NOTE | 2018-08-30 16:07 | Electrocardiograph Report ---
[address] [address] Test Date: 2018-08-29 Pat Name: Josep Shah Department: 113 Room: 3B Gender: Sales/Marketing: : 1945 Requested By: Mark Campuzano Order Number: [id number] Reading MD: Gus Duong Measurements Intervals [place] Rate: 54 P: 51 VT: 175 QRS: -32 QRSD: 101 T: 31 QT: 405 QTc: 391 Interpretive Statements SINUS BRADYCARDIA WITH SINUS ARRHYTHMIA MARKED LEFT AXIS DEVIATION Electronically Signed On 08-30-2018 16:05:15 EST by Gus Duong
--- NOTE | 2018-08-30 16:55 | Electrocardiograph Report ---
[address] [address] Test Date: 2018-08-30 Pat Name: Josep Shah Department: 113 Room: 3B Gender: M Patternmaker Wood: OPHELIA : 1945 Requested By: Luther Sanchez Order Number: [id number] Reading MD: Gus Duong Measurements Intervals [place] Rate: 64 P: 58 WV: 162 QRS: -20 QRSD: 104 T: 37 QT: 382 QTc: 392 Interpretive Statements SINUS RHYTHM Electronically Signed On 08-30-2018 16:53:53 EST by Gus Duong
== END 2018-08-30 15:45 | disposition home or self-care (01) ==
LOC: 3BNU 10:17 → EMEROOARM 10:17 → 3BNU 13:20
PROVIDERS: ADMIT Internal Medicine Cardiovascular Disease; ATTEND Internal Medicine Cardiovascular Disease